=== PATIENT | male | born 1930 | race Caucasian/White ===

== ENCOUNTER 2017-02-05 09:30 | Emergency (ER) | payer OTHER ==
[~2017-02-05] VITALS: Ht 167.6 cm; Wt 81.7 kg
[~2017-02-05 09:30] MED LIST: ALPRAZOLAM 0.50.5 M1 PO; ALPRAZOLAM 0.50.5 MG PO; ASA81BEC PO; ASPIRIN EC81 M1 PO; BENACAR; BENICAR20 MG PO; CELEXA 20 MG TA20 MG PO; CLOPIDOGREL; CRESTOR5 MG PO; ED-SPAZ0.125 MG PO; FISH OIL 1,0001 EAC5 PO; FISH OIL 1,0001 EAC7 PO; GAS-X125 MG PO; HYDROCODON-ACE1 EACH PO; MECLIZINE 25 MG25 M1 PO; MULTI-VITAMIN1 EAC5 PO; NIASPAN ER 101000 M1 PO; NITROGLYCERIN0.4 MG SL; PLAVIX 75 MG TA75 M1 PO; PLAVIX 75 MG TA75 MG PO; PREDNISONE 20 M20 MG PO; PROTONIX40 M1 PO; ROBAXIN500 MG PO; SOTALOL80 MG PO; TOPROL XL25 MG PO; VERTICALM25 MG PO; [UNRECOGNIZED DRUG - CODE] PO
[2017-02-05 10:35] LABS: URINE BILIRUBIN NEGATIVE (Negative); URINE BLOOD NEGATIVE (Negative); URINE COLOR YELLOW; URINE GLUCOSE-RANDOM* NEGATIVE (Negative); URINE KETONES NEGATIVE (Negative); URINE LEUKOCYTES-REFLEX NEGATIVE (Negative); URINE PROTEIN (DIPSTICK) NEGATIVE (Negative); URINE SPECIFIC GRAVITY 1.025 (1.003-1.035); URINE UROBILINOGEN 0.2 E.U./dl (0.2-1.0)
[2017-02-05 10:38] LABS: HEMOGLOBIN 14.4 gm/dL (14.0-18.0); MCH 29.9 pg (26.0-34.0); MCHC 33.5 g/dL (28.0-37.0); MCV 89.2 fL (80.0-100.0); PLATELET COUNT 248 thou/uL (150-400); RBC 4.82 mil/uL (4.50-6.00); RDW 13.9 % (10.5-14.5)
[2017-02-05 10:41] LABS: MANUAL DIFF YES
[2017-02-05 10:45] LABS: CALCIUM 9.2 mg/dL (8.5-10.1); CREATININE 1.8 mg/dL (0.7-1.3); POTASSIUM 4.4 mmol/L (3.5-5.1)
[2017-02-05 10:50] LABS: ALBUMIN 3.7 g/dL (3.4-5.0); TOTAL BILIRUBIN 0.5 mg/dL (<0.1-1.0); TOTAL PROTEIN 7.6 g/dL (6.4-8.2)
[2017-02-05 11:08] LABS: PLATELET ESTIMATE NORMAL; TOTAL CELL COUNT 100
[2017-02-05] MEDS ORDERED: LOPRESSOR25 PO (12:10)
== END 2017-02-05 12:28 | disposition home or self-care (01) ==
LOC: ER 09:30
PROVIDERS: Physician Assistant
DX: R10.31 Right lower quadrant pain (principal); I10 Essential (primary) hypertension; E78.00 Pure hypercholesterolemia, unspecified; I25.10 Atherosclerotic heart disease of native coronary artery without angina pectoris; F41.9 Anxiety disorder, unspecified; F32.9 Major depressive disorder, single episode, unspecified; I48.91 Unspecified atrial fibrillation; F10.99 Alcohol use, unspecified with unspecified alcohol-induced disorder; Z85.46 Personal history of malignant neoplasm of prostate; Z95.5 Presence of coronary angioplasty implant and graft; Z90.49 Acquired absence of other specified parts of digestive tract; Z86.018 Personal history of other benign neoplasm; Z87.891 Personal history of nicotine dependence

== ENCOUNTER 2017-09-25 12:16 | Inpatient (IN) | payer OTHER ==
[~2017-09-25] VITALS: Ht 170.2 cm; Wt 83.1 kg
--- NOTE | ~2017-09-25 | HC ---
[facility] [place] [address] CONSULTATION Name: MARIE YIP Room #: 435-P [facility]#: [id number] Admission: 09/25/17 Attend Phys: Enzo Zaidi MD Discharge: 09/26/17 Date of : 32 Report #: [id number] THIS REPORT FOR: //name// CC: Enzo Amador DO DATE OF SERVICE: 09/25/2017 HISTORY OF PRESENT ILLNESS: The patient is an 86-year-old white male who I was asked to see in the hospital today after he complained of chest pain. The patient has an extensive past medical history. The patient apparently had a coronary artery stent placed in his LAD in 2008. He had a repeat heart catheterization in 2012 that showed no restenosis of the stent. Stress PET scan in 2014 showed no ischemia. Previous EGD showed a Schatzki's ring that was dilated. He was actually admitted here to [facility] in 2015 with chest pain. Nuclear stress test in 07/2016 showed no ischemia. Echocardiogram at that time showed normal left ventricular function. The patient continues to complain of intermittent chest pain. It is not necessarily related to exertion or meals. Typically occurs when he is lifting his arms. Last few days, he has had an intermittent, sharp pain in his chest. He feels a soreness that is there all the time. The pain is not related to activity or meals. There is no associated shortness of breath or diaphoresis. He came to the Emergency Room today and was admitted. The patient stays active walking 2 miles a day. He also continues to play golf. Denies exertional dyspnea, palpitations, syncope or peripheral edema. PAST MEDICAL HISTORY: Otherwise significant for previous cholecystectomy and cataract extraction. He has had radiation therapy for prostate cancer. He has a history of hypertension. He apparently had an episode of atrial fibrillation in the past and was on sotalol, but is no longer taking sotalol. MEDICATIONS: His current medications include Xanax, aspirin, clopidogrel, Benicar, metoprolol, niacin and Crestor. ALLERGIES: He has no known drug allergies. FAMILY HISTORY: His mother and father had a heart attack. SOCIAL HISTORY: He is . He and his live in [place], [place]. 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 Quit smoking years ago. Occasionally drinks alcohol. REVIEW OF SYSTEMS: He has had no history of stroke. He does have asthma and uses inhaler occasionally. He has had a history of peptic ulcer disease. No liver disease and no chronic skin condition. No psychiatric illness. [facility] [address] [place] [address] CONSULTATION Name: MARIE YIP Lenora Room #: 435-P [facility]#: [id number] Admission: 09/25/17 Attend Phys: Enzo Zaidi MD Discharge: 09/26/17 Date of : 32 Report #: [id number] PHYSICAL EXAMINATION: GENERAL: Elderly male lying in bed. He appeared in no distress. VITAL SIGNS: He had a blood pressure of 140/70 and pulse 60. He is afebrile. HEENT: He was anicteric. Conjunctivae pink. Mucous membranes are moist. NECK: Veins are not distended. No carotid bruits. CHEST: Revealed expiratory wheezes. CARDIOVASCULAR: Regular rate and rhythm. No significant murmur. ABDOMEN: Soft and nontender. EXTREMITIES: Had no edema. Dorsalis pedis pulse 1+ bilaterally. SKIN: Warm and dry. NEUROLOGIC: Nonfocal. LYMPH: No adenopathy. MUSCULOSKELETAL: No joint effusion. RADIOLOGICAL DATA: His ECG showed a sinus rhythm with sinus bradycardia, left axis, no ST or T-wave change. His workup in the Emergency Room today, he had a portable chest x-ray that showed normal heart size and clear lung xiao. LABORATORY DATA: Today sodium 139, BUN is 20, creatinine 1.8 and glucose 91. His troponin was 0.04. His cholesterol was 165, triglycerides 342, HDL 28 and LDL 69. White blood cell count 11.0 and hemoglobin 14.2. IMPRESSION AND RECOMMENDATIONS: 1. Chest pain. Atypical for angina. No evidence of acute myocardial infarction. Because of his history of coronary artery disease, recommend screening. Since the patient is on a beta mario and has an abnormal ECG, I would recommend pharmacologic nuclear stress testing. 2. Hypertension. The patient has been on a beta mario and ARB. 3. Hyperlipidemia. The patient is on a statin drug. 4. Asthma. 5. Chronic kidney disease. 6. History of prostate cancer. <ELECTRONICALLY SIGNED> By: Pool Marks MD, FACC 09/27/17 0829 1710 2329 Pool Marks MD, FACC /nt
--- NOTE | ~2017-09-25 | EKG ---
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 : 1930 Requested By: Pool Marks Order Number: [id number] MD: Beka Husain Measurements Intervals [place] Rate: 56 P: 51 NV: 225 QRS: -23 QRSD: 90 T: 71 QT: 443 QTc: 428 Interpretive Statements Sinus bradycardia Prolonged NV interval Borderline left axis deviation Compared to ECG 09/25/2017 12:30:14 No significant change was found Electronically Signed On 09-26-2017 8:49:20 NOZZLE AND SLEEVE WORKER by Beka Husain [email or web address] <ELECTRONICALLY SIGNED> By: Beka Husain MD, [facility] 09/26/17 0849 8 8 Beka Husain MD, [facility] /EPI
--- NOTE | ~2017-09-25 | EKG ---
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 : 1930 Requested By: Damion Walker Order Number: [id number] MD: Beka Husain Measurements Intervals [place] Rate: 53 P: -59 VA: 203 QRS: -25 QRSD: 92 T: 65 QT: 437 QTc: 411 Interpretive Statements Sinus bradycardia with first-degree AV block Borderline left axis deviation Compared to ECG 10/09/2016 08:39:46 No significant change was found Electronically Signed On 09-25-2017 16:31:56 LINOTYPE MACHINIST APPRENTICE by Beka Husain [email or web address] <ELECTRONICALLY SIGNED> By: Beka Husain MD, [facility] 09/25/17 1631 1230 1230 Beka Hsuain MD, [facility] /EPI
[~2017-09-25 12:16] MED LIST changes: +LOPRESSOR25 PO
[2017-09-25 12:18] VITALS: BP 140/66
[2017-09-25] MEDS ORDERED: FISH OIL 1,001000 M2 PO (13:18)
[2017-09-25 13:37] LABS: HEMATOCRIT 42.8 % (42.0-52.0); HEMOGLOBIN 14.2 gm/dL (14.0-18.0); MCH 29.5 pg (26.0-34.0); MCHC 33.3 g/dL (28.0-37.0); MCV 88.7 fL (80.0-100.0); RBC 4.83 mil/uL (4.50-6.00); RDW 13.4 % (10.5-14.5)
[2017-09-25 13:41] LABS: ANION GAP 5 mmol/L (7-16); BUN 20 mg/dL (7-18); CALCIUM 9.1 mg/dL (8.5-10.1); CHLORIDE 104 mmol/L (98-107); CO2 30 mmol/L (21-32); CREATININE 1.8 mg/dL (0.7-1.3); GLUCOSE 91 mg/dL (74-106); POTASSIUM 4.1 mmol/L (3.5-5.1); SODIUM 139 mmol/L (136-145)
[2017-09-25 13:51] LABS: TROPONIN-I < 0.04 ng/mL (<0.06)
[2017-09-25 15:11] VITALS: BP 113/66
[2017-09-25 15:37] VITALS: BP 137/67
[2017-09-25 15:58] LABS: CHOLESTEROL 165 mg/dL (<200); HDL CHOLESTEROL 28 mg/dL (>40); LDL CHOLESTEROL 69 mg/dL (<100); TC:HDL 5.9 Ratio (Not establshd); TRIGLYCERIDE 342 mg/dL (<150); VLDL 68 mg/dL (<40)
[2017-09-25 16:00] VITALS: BP 140/68
[2017-09-25 16:24] LABS: TSH 3.837 uIU/mL (0.358-3.740)
[2017-09-25 21:17] VITALS: BP 143/69
[2017-09-26 04:21] VITALS: BP 146/60
[2017-09-26 07:35] VITALS: BP 147/72
[2017-09-26 10:15] LABS: ABSOLUTE NEUTROPHILS 6.1 thou/uL (1.4-8.2); BASOPHILS 0.9 % (0.0-2.0); EOSINOPHILS 4.6 % (0.0-3.0); HEMATOCRIT 42.3 % (42.0-52.0); HEMOGLOBIN 14.2 gm/dL (14.0-18.0); LYMPHOCYTES 20.8 % (24.0-44.0); MCH 29.6 pg (26.0-34.0); MCHC 33.6 g/dL (28.0-37.0); MCV 87.9 fL (80.0-100.0); MONOCYTES 10.2 % (1.0-8.0); PLATELET COUNT 234 thou/uL (150-400); POLYS 63.5 % (36.0-66.0); RBC 4.82 mil/uL (4.50-6.00); RDW 13.9 % (10.5-14.5); WBC 9.6 thou/uL (4.0-11.0)
[2017-09-26 10:22] LABS: CALCIUM 9.1 mg/dL (8.5-10.1); CREATININE 1.7 mg/dL (0.7-1.3); POTASSIUM 4.3 mmol/L (3.5-5.1)
[2017-09-26 15:34] VITALS: BP 138/69
[2017-09-26 18:09] VITALS: BP 138/69
== END 2017-09-26 18:32 | disposition home or self-care (01) | DRG 303 ==
LOC: ER 12:16 → EROBS 14:25 → 4S 14:25
PROVIDERS: Emergency Medicine; Hospitalist; Nurse Practitioner
DX: I25.119 Atherosclerotic heart disease of native coronary artery with unspecified angina pectoris (principal); E78.00 Pure hypercholesterolemia, unspecified; F41.9 Anxiety disorder, unspecified; F32.9 Major depressive disorder, single episode, unspecified; I48.91 Unspecified atrial fibrillation; N18.3 Chronic kidney disease, stage 3 (moderate); I12.9 Hypertensive chronic kidney disease with stage 1 through stage 4 chronic kidney disease, or unspecified chronic kidney disease; J45.909 Unspecified asthma, uncomplicated; E78.5 Hyperlipidemia, unspecified; H91.90 Unspecified hearing loss, unspecified ear; Z85.46 Personal history of malignant neoplasm of prostate; Z98.42 Cataract extraction status, left eye; Z98.41 Cataract extraction status, right eye; Z95.5 Presence of coronary angioplasty implant and graft; Z90.49 Acquired absence of other specified parts of digestive tract; Z79.82 Long term (current) use of aspirin; Z79.899 Other long term (current) drug therapy; Z87.891 Personal history of nicotine dependence; Z82.49 Family history of ischemic heart disease and other diseases of the circulatory system
CPT/HCPCS: 10100

== ENCOUNTER 2018-04-29 10:12 | Inpatient (IN) | payer OTHER ==
[~2018-04-29] VITALS: Ht 170.2 cm; Wt 79.8 kg
--- NOTE | ~2018-04-29 | EKG ---
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 : 1930 Requested By: yTra Bearden Order Number: [id number] MD: Adam Almanza Measurements Intervals [place] Rate: 59 P: -14 ND: 195 QRS: -28 QRSD: 87 T: 83 QT: 418 QTc: 414 Interpretive Statements Sinus rhythm Borderline left axis deviation Nonspecific T abnormalities, lateral leads Compared to ECG 09/26/2017 06:39:09 T-wave abnormality now present Sinus bradycardia no longer present First degree AV block no longer present Electronically Signed On 05-03-2018 14:36:21 CDT by Adam Almanza [email or web address] <ELECTRONICALLY SIGNED> By: Adam Almanza MD 05/03/18 1436 1013 1013 Adam Almanza MD /EPI
--- NOTE | ~2018-04-29 | 2DMMODE ---
[facility] [place] [address] 2 D/M-MODE ECHOCARDIOGRAM Name: MARIE YIP Room #: 349-I [facility] IN [facility]#: [id number] Admission: 04/29/18 Attend Phys: Reggie Anne MD Discharge: Date of : 32 Date of Service: 04/30/18 0838 Report #: [id number] THIS REPORT FOR: //name// APPROVED REPORT Study performed: 04/29/2018 13:03:44 EXAM: Comprehensive 2D, Doppler, and color-flow Echocardiogram Patient Location: ER Status: routine BSA: 1.94 HR: 59 bpm BP: 149/65 mmHg Other Information Study Quality: Good Indications Chest Pain Hx: CAD, stents, Afib, HTN, HLP 2D Dimensions RVDd: 29.65 mm IVSd: 9.70 (7-11mm) LVOT Diam: 19.62 (18-24mm) LVDd: 45.15 mm PWd: 9.69 (7-11mm) Ascending Ao: 30.50 (22-36mm) LVDs: 30.12 (25-40mm) Aortic Root: 31.07 mm Volumes Left Atrial Volume (Systole) Single Plane 4CH: 35.57 mL Single Plane 2CH: 50.10 mL LA ESV Index: 24.00 mL/m2 Aortic Valve AoV Peak Michael.: 1.25 m/s AO Peak Gr.: 6.24 mmHg LVOT Max P.09 mmHg LVOT Max V: 1.13 m/s TERRY Vmax: 2.73 cm2 Mitral Valve E/A Ratio: 0.8 MV Decel. Time: 263.36 ms MV E Max Michael.: 0.53 m/s [facility] [address] [place] [address] 2 D/M-MODE ECHOCARDIOGRAM Name: PHIMARIE Lenora Room #: 349-I [facility] IN [facility]#: [id number] Admission: 04/29/18 Attend Phys: Reggie Anne MD Discharge: Date of : 32 Date of Service: 04/30/18 0838 Report #: [id number] MV A Michael.: 0.66 m/s MV PHT: 76.37 ms IVRT: 87.66 ms Pulmonary Valve PV Peak Michael.: 0.77 m/s PV Peak Gr.: 2.40 mmHg Pulmonary Vein P Vein S: 0.74 m/s P Vein A: 0.33 m/s P Vein D: 0.47 m/s P Vein A Dur.: 133.8 msec P Vein S/D Ratio: 1.57 Tricuspid Valve RAP Estimate: 5.00 mmHg Left Ventricle The left ventricle is normal size. There is normal LV segmental wall motion. There is normal left ventricular wall thickness. Left ventricular systolic function is normal. LVEF is 55%. Mild diastolic dysfunction is present (impaired relaxation pattern). Right Ventricle The right ventricle is normal size. The right ventricular systolic function is normal. Atria The left atrium size is normal. The right atrium size is normal. Aortic Valve The Aortic valve is mildly sclerotic. Trace to mild aortic regurgitation. There is no aortic valvular stenosis. Mitral Valve The mitral valve is normal in structure. Mild mitral regurgitation. No evidence of mitral valve stenosis. Tricuspid Valve The tricuspid valve is normal in structure. There is no tricuspid valve regurgitation noted. Unable to assess PA pressure. Pulmonic Valve Pulmonic valve is not well visualized. Mild pulmonic regurgitation. [employer] [facility] [address] [place] [place] [address] 2 D/M-MODE ECHOCARDIOGRAM Name: MARIE YIP Room #: 349-I ADM IN ..#: [id number] Admission: 04/29/18 Attend Phys: Reggie Anne MD Discharge: Date of : 32 Date of Service: 04/30/1838 Report #: [id number] The aortic root is normal in size. Ascending aorta is not well visualized. IVC is not well visualized. Pericardium There is no pericardial effusion. <Conclusion> LVEF is 55%. The Aortic valve is mildly sclerotic. Mild mitral regurgitation. <ELECTRONICALLY SIGNED> By: Pool Marks MD, [facility] 09/837 7 7 Pool Marks MD, FACC /INF
--- NOTE | ~2018-04-29 | HC ---
[facility] [place] [address] CONSULTATION Name: PHIMARIE Lenora Room #: 349-I ADM IN [facility].#: [id number] Admission: 04/29/18 Attend Phys: Reggie Anne MD Discharge: Date of : 32 Report #: [id number] THIS REPORT FOR: //name// CC: Reggie Amador DO DATE OF SERVICE: 04/30/2018 HISTORY OF PRESENT ILLNESS: The patient is an 87-year-old single white male who I saw in the hospital after he complained of chest pain. The patient had a stent placed in his LAD in 2008. Repeat heart catheterization in 2012 showed no restenosis. His last stress test in 2015 showed no evidence of ischemia with an ejection fraction of 73%. The patient stays fairly active despite his advanced age. In the past couple of days, he has had intermittent chest pain. It is not related to exertion or meals. It seems to be tender to touch. He denied any trauma to his chest. There is no radiation of the pain, associated shortness of breath, diaphoresis or nausea. The pain would come and go. He has had no fever, cough or bleeding. He finally came to the Emergency Room last night and was admitted. He denies exertional dyspnea. He notes occasional fluttering in his chest. No syncope. PAST MEDICAL HISTORY: Otherwise significant for cholecystectomy, cataract extraction and hypertension. He had a previous history of atrial fibrillation and had been on sotalol in the past. CURRENT MEDICATIONS: Consists of aspirin, Celexa, Plavix, olmesartan, Crestor and metoprolol. ALLERGIES: He has no known drug allergies. FAMILY HISTORY: His father had a heart disease. SOCIAL HISTORY: He is single. His a few months ago of heart disease. He lives in [place], [place]. 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 He stays active including golfing. He quit smoking years ago. No alcohol abuse. REVIEW OF SYSTEMS: He has had no history of stroke or asthma. He had a peptic ulcer years ago. No history of kidney disease. He has had a history of prostate cancer. No psychiatric illness. No chronic skin condition. PHYSICAL EXAMINATION: GENERAL: Reveals an elderly male, lying in bed. He appeared in no distress. VITAL SIGNS: He had a blood pressure of 150/80, pulse 60 and he is afebrile. HEENT: He was anicteric. Conjunctivae pink. Mucous membranes are moist. [facility] [address] [place] [address] CONSULTATION Name: MARIE YIP Room #: 349-I [facility]#: [id number] Admission: 04/29/18 Attend Phys: Reggie Anne MD Discharge: Date of : 32 Report #: [id number] NECK: Veins nondistended. No carotid bruits. CHEST: Clear to auscultation. CARDIOVASCULAR: Regular rate and rhythm. No significant murmur. ABDOMEN: Soft. EXTREMITIES: He had no edema. Dorsalis pedis pulse 2+ bilaterally. SKIN: Warm and dry. NEUROLOGIC: Nonfocal. LABORATORY DATA: His ECG on admission yesterday showed sinus bradycardia, no ST or T-wave change. His workup so far, he had a portable chest x-ray that showed atelectasis, otherwise unremarkable. He actually had a nuclear stress test in September that showed small reversible basal lateral defect. This is felt to represent a small area of ischemia. There was normal left ventricular function. His lab work, sodium 140 and creatinine was 1.9, which is unchanged from 3 years ago. His liver function studies were normal. His white blood cell count 12.4 and hemoglobin 14.7. IMPRESSION AND RECOMMENDATIONS: 1. Chest pain. Somewhat atypical for angina. No evidence of acute myocardial infarction. I suspect his chest pain is noncardiac. Nuclear stress test 6 months ago showed only a small area of ischemia. At this time, I will continue medical therapy. I will continue Plavix and beta mario. I would make sure the patient has nitroglycerin to take as needed for chest pain. At this time, I think it is reasonable to discharge the patient. 2. Hypertension. The patient is on a beta mario and ARB. 3. History of atrial fibrillation. No clinical recurrences. The patient is no longer on sotalol. 4. History of prostate cancer. 5. Hyperlipidemia. The patient is on a statin drug. <ELECTRONICALLY SIGNED> By: Pool Marks MD, [facility] 04/30/18 1637 0807 0837 Pool Marks MD, FACC /nt
--- NOTE | ~2018-04-29 | EKG ---
[address] [address] ELECTROCARDIOGRAM REPORT Name: MARIE YIP Room #: 349-I DIS IN M.R.#: [id number] Admission: 04/29/18 Attend Phys: Reggie Anne MD Discharge: 04/30/18 Date of : 32 Report #: [id number] THIS REPORT FOR: //name// [facility] Test Date: 2018-04-30 Test Time: 14:46:46 Pat Name: MARIE YIP Department: Room: 349 I Gender: M Accountant Assistant: Aleks MUNGUIA : 1930 Requested By: Reggie Anne Order Number: [id number] MD: Adam Almanza Measurements Intervals [place] Rate: 50 P: 50 WI: 225 QRS: -16 QRSD: 92 T: 106 QT: 461 QTc: 421 Interpretive Statements Sinus rhythm Prolonged [place] interval Borderline left axis deviation Nonspecific T abnormalities, lateral leads Compared to ECG 09/26/2017 06:39:09 T-wave abnormality now present Sinus bradycardia no longer present Electronically Signed On 05-03-2018 14:58:14 CDT by Adam Almanza [email or web address] <ELECTRONICALLY SIGNED> By: Adam Almanza MD 05/03/18 1458 1446 1446 Adam Almanza MD /EPI
[~2018-04-29 10:12] MED LIST changes: +FISH OIL 1,001000 M2 PO
[2018-04-29 10:14] VITALS: BP 151/70
[2018-04-29 10:48] LABS: ABSOLUTE NEUTROPHILS 7.5 thou/uL (1.4-8.2); BASOPHILS 0.7 % (0.0-2.0); EOSINOPHILS 1.9 % (0.0-3.0); HEMATOCRIT 44.4 % (42.0-52.0); HEMOGLOBIN 14.7 gm/dL (14.0-18.0); LYMPHOCYTES 27.7 % (24.0-44.0); MCH 29.3 pg (26.0-34.0); MCV 88.8 fL (80.0-100.0); MONOCYTES 9.4 % (1.0-8.0); PLATELET COUNT 288 thou/uL (150-400); POLYS 60.3 % (36.0-66.0); RDW 14.5 % (10.5-14.5); WBC 12.4 thou/uL (4.0-11.0)
[2018-04-29 11:10] LABS: ANION GAP 7 mmol/L (7-16); BUN 29 mg/dL (7-18); CALCIUM 9.2 mg/dL (8.5-10.1); CHLORIDE 105 mmol/L (98-107); CO2 28 mmol/L (21-32); CREATININE 1.9 mg/dL (0.7-1.3); GLUCOSE 97 mg/dL (74-106); POTASSIUM 4.2 mmol/L (3.5-5.1); SODIUM 140 mmol/L (136-145)
[2018-04-29 11:18] LABS: ALBUMIN 3.8 g/dL (3.4-5.0); LIPASE 227 U/L (73-393); MAGNESIUM 2.1 mg/dL (1.8-2.4); SGOT 21 U/L (15-37); SGPT 34 U/L (30-65); TOTAL BILIRUBIN 0.4 mg/dL (<0.1-1.0); TOTAL PROTEIN 7.2 g/dL (6.4-8.2); TROPONIN-I <0.06 ng/mL (<0.06)
[2018-04-29 12:34] LABS: URINE BILIRUBIN NEGATIVE (Negative); URINE BLOOD NEGATIVE (Negative); URINE CLARITY CLEAR; URINE COLOR YELLOW; URINE GLUCOSE-RANDOM* NEGATIVE (Negative); URINE KETONES NEGATIVE (Negative); URINE LEUKOCYTES-REFLEX NEGATIVE (Negative); URINE NITRITE-REFLEX NEGATIVE (Negative); URINE PROTEIN (DIPSTICK) NEGATIVE (Negative); URINE SPECIFIC GRAVITY 1.025 (1.005-1.035); URINE UROBILINOGEN 0.2 E.U./dl (0.2-1.0)
[2018-04-29 14:20] VITALS: BP 149/65
[2018-04-29 15:00] VITALS: BP 173/74
[2018-04-29 15:03] VITALS: BP 181/80
[2018-04-29 20:20] VITALS: BP 167/78
[2018-04-29 23:30] VITALS: BP 173/84
[2018-04-30] VITALS (7 sets, daily range): BP systolic 76–152; BP diastolic 43–83
[2018-04-30] MEDS ORDERED: PROTONIX40 M1 PO (11:09)
[2018-04-30 13:49] LABS: ABSOLUTE NEUTROPHILS 5.2 thou/uL (1.4-8.2); BASOPHILS 0.8 % (0.0-2.0); EOSINOPHILS 2.9 % (0.0-3.0); HEMATOCRIT 41.9 % (42.0-52.0); HEMOGLOBIN 14.4 gm/dL (14.0-18.0); LYMPHOCYTES 29.1 % (24.0-44.0); MCH 30.4 pg (26.0-34.0); MCHC 34.4 g/dL (28.0-37.0); MCV 88.3 fL (80.0-100.0); MONOCYTES 11.2 % (1.0-8.0); PLATELET COUNT 272 thou/uL (150-400); RBC 4.74 mil/uL (4.50-6.00); RDW 14.2 % (10.5-14.5); WBC 9.3 thou/uL (4.0-11.0)
[2018-04-30 14:00] LABS: ALBUMIN 3.4 g/dL (3.4-5.0); CALCIUM 8.9 mg/dL (8.5-10.1); CREATININE 2.3 mg/dL (0.7-1.3); POTASSIUM 4.1 mmol/L (3.5-5.1); TOTAL BILIRUBIN 0.6 mg/dL (<0.1-1.0); TOTAL PROTEIN 6.9 g/dL (6.4-8.2)
== END 2018-04-30 16:55 | disposition home or self-care (01) | DRG 391 ==
LOC: ER 10:12 → EROBS 12:36 → 3W 12:36 → ENTRNSPT 04-30 12:47 → EDTRNSPTSTS 04-30 12:50 → 3W 04-30 16:55
PROVIDERS: Hospitalist; Nurse Practitioner Family
DX: K21.9 Gastro-esophageal reflux disease without esophagitis (principal); N17.0 Acute kidney failure with tubular necrosis; I25.119 Atherosclerotic heart disease of native coronary artery with unspecified angina pectoris; E78.00 Pure hypercholesterolemia, unspecified; K57.90 Diverticulosis of intestine, part unspecified, without perforation or abscess without bleeding; I48.91 Unspecified atrial fibrillation; N18.9 Chronic kidney disease, unspecified; E78.5 Hyperlipidemia, unspecified; G89.29 Other chronic pain; I12.9 Hypertensive chronic kidney disease with stage 1 through stage 4 chronic kidney disease, or unspecified chronic kidney disease; I25.10 Atherosclerotic heart disease of native coronary artery without angina pectoris; F41.9 Anxiety disorder, unspecified; F32.9 Major depressive disorder, single episode, unspecified; Z85.46 Personal history of malignant neoplasm of prostate; Z92.3 Personal history of irradiation; Z98.42 Cataract extraction status, left eye; Z98.41 Cataract extraction status, right eye; Z90.49 Acquired absence of other specified parts of digestive tract; Z95.5 Presence of coronary angioplasty implant and graft; Z87.891 Personal history of nicotine dependence; Z82.49 Family history of ischemic heart disease and other diseases of the circulatory system; Z79.82 Long term (current) use of aspirin; Z79.899 Other long term (current) drug therapy; Z60.2 Problems related to living alone
CPT/HCPCS: 10879

== ENCOUNTER 2018-05-29 22:36 | Inpatient (IN) | payer OTHER ==
[~2018-05-29] VITALS: Ht 170.2 cm; Wt 78.5 kg
--- NOTE | ~2018-05-29 | EKG ---
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 Lineman: NATHEN : 1930 Requested By: Mercedes Hannah Order Number: [id number] MD: Beka Husain Measurements Intervals [place] Rate: 65 P: 50 MT: 215 QRS: -34 QRSD: 92 T: 86 QT: 409 QTc: 426 Interpretive Statements Sinus rhythm Borderline prolonged MT interval Left axis deviation Abnormal R-wave progression, early transition Compared to ECG 04/30/2018 14:46:46 T-wave abnormality no longer present Electronically Signed On 05-30-2018 8:21:04 CDT by Beka Husain [email or web address] <ELECTRONICALLY SIGNED> By: Beka Husain MD, [facility] 05/30/18 0821 2249 2249 Beka Husain MD, [facility] /EPI
--- NOTE | ~2018-05-29 | CATHLAB ---
"[facility] [address] | [employer] [place] [address] INVASIVE PROCEDURE REPORT Name: PHIMARIE Lenora Room #: 349-I ADM IN [facility].#: [id number] Admission: 05/29/18 Attend Phys: Enzo Zaidi MD Discharge: Date of : 32 Date of Service: 05/31/18 0834 Report #: [id number] THIS REPORT FOR: //name// APPROVED REPORT Study performed: 05/30/2018 15:59:31 Patient Details Patient Status: In-Patient Room #: The patient is a 87 year-old male Event Personnel Pool Marks Features Editor, Harrison Turk RN RN, Maria Eugenia Treviño RTR, Subha Villalpando Christine RTR Monitor, Pedro Montes De Oca RN Procedures Performed Art Access - R femoral artery* Left Heart Cath w/or w/o Coronaries [id number] [facility] 16857 Initial Mod Sed Same Phys/QHP Gr5y 669516 Hemostasis w/ Mynx 03342 Mod Sed Same Phys/QHP Ea [id number] Indication Chest pain Risk Factors Hypercholesterolemia, Coronary Artery Disease Previous Procedures/Diagnoses Previous PCI Procedure Narrative The patient was brought electively to the Cardiac Catheterization Laboratory and was prepped and draped in a sterile manner. The Right Groin^ was infiltrated with 1% Lidocaine subcutaneous anesthesia. A PINNACLE 6FR Sheath #[id number] sheath was inserted into the RFA 6FR^. Coronary angiography was performed using coronary diagnostic catheters. The right coronary system was accessed and visualized with a JR4 catheter. The left coronary system was accessed and visualized with a JL4 catheter. The left ventricle was accessed and visualized with a JR4 catheter. Left ventricular/Aortic Valve gradient assessed via catheter pullback. Closure device was deployed with a 6 Fr MYNXGRIP 6/7F #[id number]. The patient tolerated the procedure well and there were no complications associated with the procedure. There was no hematoma. [facility] [address] [place] [address] INVASIVE PROCEDURE REPORT Name: PHIMARIE Lenora Room #: 349-I [facility] IN [facility]#: [id number] Admission: 05/29/18 Attend Phys: Enzo Zaidi MD Discharge: Date of : 32 Date of Service: 05/31/18 0834 Report #: [id number] Intraoperative Conscious Sedation Sedation start time: 16:57 Case end Time: 17:35 Versed 1 mg Fluoro Time: 1.30 minutes Dose: DAP 2878.00 cGycm2 315 mGy Contrast Type and Amount: Visipaque 100 ml Coronary Angiography The patient's coronary anatomy is right dominant. Diagnostic Cath Left Main 0% stenosis LAD stent in mid lad with 0% stenosis. 60% stenosis noted beyond second diagonal branch Circumflex 60% mid stenosis and 60% stenosis beyond 3rd marginal branch Right Coronary 60% mid and 30% distal stenosis Left Ventriculography Left Ventriculography was not performed. Hemodynamics The aortic pressure is 189/81 mmHg with a mean of 120 mmHg. The left ventricular pressure is 184/30 mmHg with a mean of mmHg. The left ventricular end diastolic pressure is 32 mmHg. There was no gradient across the aortic valve upon pullback. Pullback from the left ventricle to the aorta revealed no gradient across the aortic valve. Conclusion 1. no significant restenosis of stent in mid lad 2. diffuse cad with 60% stenosis noted of distal lad, 60% stenosis of mid circumflex, and 60% stenosis of mid rca Recommendations Aggressive Medical Therapy <ELECTRONICALLY SIGNED> By: Pool Marks MD, FACC 05/31/18833 3 3 Pool Marks MD, FACC /INF"
--- NOTE | ~2018-05-29 | HC ---
[facility] [place] [address] CONSULTATION Name: MARIE YIP Lenora Room #: 349-I ADM IN ..#: [id number] Admission: 05/29/18 Attend Phys: Enzo Zaidi MD Discharge: Date of : 32 Report #: [id number] THIS REPORT FOR: //name// CC: Enzo Amador DO DATE OF SERVICE: 05/30/2018 TYPE OF REPORT: Cardiology consultation. HISTORY OF PRESENT ILLNESS: The patient is an 87-year-old single white male who I was asked to see in the hospital today after he complained of chest pain. The patient had a stent placed in his LAD in 2008. Repeat heart catheterization in 2012 showed no significant restenosis. The patient stays fairly active despite his age. He continues to golf and go for walks. Nuclear stress test in September this year showed a small reversible lateral defect at the base. This is felt to represent a small area of ischemia. Medical therapy was recommended. The patient states that recently he has been having recurrent chest pain. He describes a sharp pain in his chest. It is not necessarily related to exertion or meals. It can be relieved with nitroglycerin. It is not related to food. He has had no fever, bleeding or cough. He has had no blood in the stool. Because of the chest pain, family brought him to the Emergency Room last night he was admitted for further evaluation and treatment. He does note some exertional dyspnea, but no palpitations or syncope. PAST MEDICAL HISTORY: Significant for cholecystectomy, cataract extraction and hypertension. He has a previous history of atrial fibrillation and was on sotalol in the past. CURRENT MEDICATIONS: Consists of aspirin, Plavix, olmesartan, Crestor, metoprolol and Celexa. ALLERGIES: He has no known drug allergies. FAMILY HISTORY: His father had heart disease. SOCIAL HISTORY: Single, lives in [place], [place]. He quit smoking years ago. No alcohol abuse. REVIEW OF SYSTEMS: He has had no history of stroke or asthma. He has had a peptic ulcer in the past. No history of kidney disease. He does have a history of prostate cancer. No psychiatric illness. No chronic skin condition. PHYSICAL EXAMINATION: GENERAL: Revealed an elderly male who appeared in no acute distress. [facility] [address] [place] [address] CONSULTATION Name: MARIE YIP Room #: 349-I [facility] IN [facility]#: [id number] Admission: 05/29/18 Attend Phys: Enzo Zaidi MD Discharge: Date of : 32 Report #: [id number] VITAL SIGNS: He had a blood pressure of 140/70 and pulse 60. He is afebrile. HEENT: He is anicteric. Conjunctivae pink. Mucous members moist. CHEST: Clear to auscultation. CARDIOVASCULAR: Regular rate and rhythm. No significant murmur. ABDOMEN: Soft. EXTREMITIES: No edema. SKIN: Warm and dry. NEUROLOGICAL: Nonfocal. RADIOLOGICAL DATA: ECG, sinus rhythm, nonspecific T-wave changes. His workup, he actually had an echocardiogram just done last month that showed ejection fraction 55%, aortic sclerosis. Workup in the Emergency Room last night, he had a chest x-ray that showed normal heart size and clear lung xiao. LABORATORY DATA: Sodium 140, potassium 3.9, his BUN was 24 and creatinine 1.9. It has been as high as 2.3 in the past. His liver function studies were normal. Troponin 0.06. Cholesterol 201, triglyceride 133, HDL 34 and LDL 141. White blood cell count 10.3 and hemoglobin 15.1. IMPRESSION AND RECOMMENDATIONS: 1. Unstable angina. The patient is on aspirin and Plavix. I would recommend repeat cardiac catheterization. 2. History of atrial fibrillation. No clinical recurrences on a beta mario. 3. Hypertension. The patient is on a beta mario and adrenergic receptor binder. 4. Hyperlipidemia. The patient is on a statin drug. 5. Chronic kidney disease. 6. History of prostate cancer. By: [id number] Pool Marks MD, FACC /nt
[2018-05-29 22:47] VITALS: BP 179/77
[2018-05-29 23:02] LABS: ABSOLUTE NEUTROPHILS 5.8 thou/uL (1.4-8.2); BASOPHILS 0.6 % (0.0-2.0); EOSINOPHILS 1.7 % (0.0-3.0); HEMATOCRIT 44.3 % (42.0-52.0); HEMOGLOBIN 15.1 gm/dL (14.0-18.0); MCH 30.1 pg (26.0-34.0); MCV 88.5 fL (80.0-100.0); MONOCYTES 9.5 % (1.0-8.0); PLATELET COUNT 230 thou/uL (150-400); POLYS 56.2 % (36.0-66.0); RBC 5.01 mil/uL (4.50-6.00); RDW 14.2 % (10.5-14.5); WBC 10.3 thou/uL (4.0-11.0)
[2018-05-29 23:14] LABS: ANION GAP 7 mmol/L (7-16); BUN 24 mg/dL (7-18); CALCIUM 9.6 mg/dL (8.5-10.1); CHLORIDE 103 mmol/L (98-107); CO2 30 mmol/L (21-32); CREATININE 1.9 mg/dL (0.7-1.3); GLUCOSE 110 mg/dL (74-106); POTASSIUM 3.9 mmol/L (3.5-5.1); SODIUM 140 mmol/L (136-145)
[2018-05-29 23:19] LABS: ALBUMIN 3.8 g/dL (3.4-5.0); SGOT 19 U/L (15-37); SGPT 33 U/L (30-65); TOTAL BILIRUBIN 0.3 mg/dL (<0.1-1.0); TOTAL PROTEIN 7.7 g/dL (6.4-8.2); TROPONIN-I <0.06 ng/mL (<0.06)
[2018-05-30] VITALS (9 sets, daily range): BP systolic 119–172; BP diastolic 55–85
[2018-05-30 06:26] LABS: CHOLESTEROL 201 mg/dL (<200); HDL CHOLESTEROL 34 mg/dL (>40); LDL CHOLESTEROL 141 mg/dL (<100); TC:HDL 5.9 Ratio (Not establshd); TRIGLYCERIDE 133 mg/dL (<150); VLDL 27 mg/dL (<40)
[2018-05-31 05:14] VITALS: BP 146/70
[2018-05-31 06:42] LABS: TSH 4.361 uIU/mL (0.358-3.740)
[2018-05-31 07:27] VITALS: BP 170/72
[2018-05-31 11:50] VITALS: BP 143/70
[2018-05-31 15:25] VITALS: BP 131/77
[2018-05-31] MEDS ORDERED: NITROGLYCERIN0.4 MG SUBLING (16:32)
[2018-05-31 16:54] VITALS: BP 131/77
[2018-05-31 17:52] VITALS: BP 131/77
== END 2018-05-31 17:30 | disposition home or self-care (01) | DRG 287 ==
LOC: ER 22:36 → EROBS 23:39 → 3W 23:39
PROVIDERS: Nurse Practitioner Acute Care; Nurse Practitioner Family; Student in an Organized Health Care Education/Training Program
PROC: 4A023N7 Measurement of Cardiac Sampling and Pressure, Left Heart, Percutaneous Approach (ICD-10-PCS; principal; 2018-05-30)
PROC: B211YZZ Fluoroscopy of Multiple Coronary Arteries using Other Contrast (ICD-10-PCS; principal; 2018-05-30)
DX: I25.110 Atherosclerotic heart disease of native coronary artery with unstable angina pectoris (principal); E78.00 Pure hypercholesterolemia, unspecified; M19.012 Primary osteoarthritis, left shoulder; I25.10 Atherosclerotic heart disease of native coronary artery without angina pectoris; F41.9 Anxiety disorder, unspecified; K57.90 Diverticulosis of intestine, part unspecified, without perforation or abscess without bleeding; I48.91 Unspecified atrial fibrillation; E78.5 Hyperlipidemia, unspecified; N18.3 Chronic kidney disease, stage 3 (moderate); K21.9 Gastro-esophageal reflux disease without esophagitis; I12.9 Hypertensive chronic kidney disease with stage 1 through stage 4 chronic kidney disease, or unspecified chronic kidney disease; Z60.2 Problems related to living alone; F32.9 Major depressive disorder, single episode, unspecified; Z85.46 Personal history of malignant neoplasm of prostate; Z98.42 Cataract extraction status, left eye; Z98.41 Cataract extraction status, right eye; Z95.5 Presence of coronary angioplasty implant and graft; Z90.49 Acquired absence of other specified parts of digestive tract; Z87.891 Personal history of nicotine dependence; Z82.49 Family history of ischemic heart disease and other diseases of the circulatory system; Z92.3 Personal history of irradiation; Z79.82 Long term (current) use of aspirin; Z79.899 Other long term (current) drug therapy; Z23 Encounter for immunization
CPT/HCPCS: 10879

== ENCOUNTER 2018-09-21 13:07 | Inpatient (IN) | payer OTHER ==
[~2018-09-21] VITALS: Ht 167.6 cm; Wt 81.6 kg
--- NOTE | ~2018-09-21 | HC ---
[facility] [place] [address] CONSULTATION Name: MARIE YIP Room #: 216-P [facility] M.R.#: [id number] Admission: 09/21/18 Attend Phys: Edgardo Salinas MD Discharge: Date of : 32 Report #: [id number] THIS REPORT FOR: //name// CC: Edgardo Amador TYPE OF REPORT: Inpatient consultation. CHIEF COMPLAINT: Chest pain. PRIMARY CARE PHYSICIAN: Andrea Amador DO. HISTORY OF PRESENT ILLNESS: The patient is an 87-year-old man who presented to the Emergency Department at [facility] with chest discomfort. It was left-sided and it was off and on, lasting 5 to 30 to 40 minutes long. It was pinpoint underneath his left nipple. It was not associated with shortness of breath, palpitations, heart racing or skipping. His presenting ECG demonstrated a sinus rhythm with nonspecific T-wave abnormalities in the lateral precordial leads. His cardiac troponin levels x 3 sets are normal. He did take a nitroglycerin and it partially relieved the symptoms. Since his presentation in the hospital, he has had a couple more episodes. He is not having orthopnea or PND. He has stable Telemetry. PAST MEDICAL HISTORY: He is followed by Dr. Marks for coronary artery disease. His last MPI on record was in 2014, a PET stress test was negative for ischemia and showed grossly normal LV function. He admits he has not seen Dr. Marks in some time. He sees his primary care doctor more regularly. His cardiac catheterization in 2018 showed a mid LAD stent with a 60% stenosis of the distal LAD and a 60% stenosis of the mid circumflex and 60% stenosis of mid RCA and medical therapy was recommended at that time. HOME MEDICATIONS: His medical therapies include: Aspirin, hydrocodone, Plavix 75 mg daily, rosuvastatin 10 mg daily, Toprol 25 mg daily and niacin 1000 mg at bedtime. SOCIAL HISTORY: He is a former smoker, quit in the mid 70s. PAST SURGICAL HISTORY: Radiation therapy for prostate cancer, cholecystectomy and endoscopy. [address] [address] CONSULTATION Name: MARIE YIP Lenora [id number] Admission: 09/21/18 Attend Phys: Edgardo Salinas MD Discharge: Date of : 32 Report #: [id number] REVIEW OF SYSTEMS: GENERAL: No fevers or chills. PULMONARY: No wheezing. Positive cough. CARDIOVASCULAR: Positive chest pain. No orthopnea. No dyspnea. GASTROINTESTINAL: No fevers or chills. SKIN: No edema. MUSCULOSKELETAL: No recent falls. SOCIAL HISTORY: He is recently . He lives alone. FAMILY HISTORY: Noncontributory. PHYSICAL EXAMINATION: VITAL SIGNS: Blood pressure is 117/61, pulse is 63, respiratory rate is 18 and O2 sats 94%. GENERAL: This is a thin elderly male who is alert, in no apparent distress, good historian. HEENT: Unremarkable. No facial asymmetry. NECK: Supple. No jugular venous distention. CARDIOVASCULAR: Regular. I cannot hear a murmur or S3. LUNGS: Clear to auscultation. NEUROLOGICAL: No focal deficits. RADIOLOGICAL DATA: Electrocardiogram as noted above shows sinus rhythm, nonspecific T-wave abnormality. LABORATORY DATA: Hemoglobin level is 12.7 and platelet count is 233,000. Sodium is 139, potassium is 4.3, chloride is 106, BUN is 19 and creatinine is 1.9. Troponin-I is 0.06 x 3 sets. IMPRESSION: 1. Chest pain. His symptoms have a component, which is compatible with possibly angina and that they are relieved with nitroglycerin, but there also pinpoint and reproducible. It could be musculoskeletal as he has been coughing. 2. Coronary artery disease. He has a known history of prior percutaneous coronary intervention to his left anterior descending and oewhhoua-xb-xlnker disease in other coronary artery territories. I think it is reasonable to evaluate him with a pharmacologic stress test. Unless there are any significant abnormalities, we will proceed with continued medical therapy. 3. Chronic kidney disease as noted above. We will take this into consideration for any invasive evaluation. [address] [address] CONSULTATION Name: PHIMARIE Room #: 216-P [facility] Adrian Mejias#: [id number] Admission: 09/21/18 Attend Phys: Edgardo Salinas MD Discharge: Date of : 32 Report #: [id number] 4. Hypertension, stable. 5. Hyperlipidemia. Continue with his Crestor. By: [id number] Kenneth Banks MD, FACC /nt
[~2018-09-21 13:07] MED LIST changes: +NITROGLYCERIN0.4 MG SUBLING
[2018-09-21 13:09] VITALS: BP 121/26
[2018-09-21 13:55] LABS: BASOPHILS 0.5 % (0.0-2.0); EOSINOPHILS 3.6 % (0.0-3.0); HEMOGLOBIN 13.9 gm/dL (14.0-18.0); LYMPHOCYTES 23.2 % (24.0-44.0); MCH 29.6 pg (26.0-34.0); MCHC 33.9 g/dL (28.0-37.0); MCV 87.4 fL (80.0-100.0); MONOCYTES 8.6 % (1.0-8.0); PLATELET COUNT 230 thou/uL (150-400); POLYS 64.1 % (36.0-66.0); RBC 4.69 mil/uL (4.50-6.00); WBC 9.4 thou/uL (4.0-11.0)
[2018-09-21 13:59] LABS: ANION GAP 9 mmol/L (7-16); BUN 19 mg/dL (7-18); CALCIUM 9.1 mg/dL (8.5-10.1); CHLORIDE 104 mmol/L (98-107); CO2 25 mmol/L (21-32); CREATININE 1.8 mg/dL (0.7-1.3); GLUCOSE 88 mg/dL (74-106); POTASSIUM 4.3 mmol/L (3.5-5.1); SODIUM 138 mmol/L (136-145)
[2018-09-21 14:08] LABS: TROPONIN-I <0.06 ng/mL (<0.06)
[2018-09-21 16:59] VITALS: BP 130/67; BP 145/60
[2018-09-21 17:08] VITALS: BP 139/66
--- NOTE | 2018-09-21 18:41 | NUR ---
PATIENT ADMITTED FROM ED DEPARTMENT COMPLAINING OF CHEST PAIN, CURRENT PAIN LEVEL 2/10. ALERT AND ORIENTED X4, HARD OF HEARING. 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 ON ROOM AIR. UP INDEPENDENTLY. TOLERATING DIET. FAMILY AND PATIENT UPDATED ON THE PLAN OF CARE. NO SIGNS OF ACUTE DISTRESS NOTED AT THIS TIME. WILL CONTINUE TO MONITOR.
[2018-09-21 19:55] VITALS: BP 146/90
[2018-09-21 23:20] VITALS: BP 146/90
[2018-09-21 23:35] VITALS: BP 97/57
--- NOTE | 2018-09-22 03:16 | NUR ---
ASSUMED PT CARE AT 1900. PT A/OX4, VITAL SIGNS STABLE, ASSESSMENT CHARTED. 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 PT REQUESTED FOR SOME PAIN MEDICATION BUT WANTED IT IF THE PAIN REMAINED CONSTANT. PT HOWEVER RESTED WELL THROUGH THE NIGHT WITH NO FURTHER CONPLAINTS OF THE PAIN. TROPONIN DRAWN AT THE START OF THE SHIFT WAS <0.06. PT PROGRESSING TOWARD PLAN OF CARE. WILL CONTINUE TO CLOSELY MONITOR.
[2018-09-22 04:29] VITALS: BP 117/61
[2018-09-22 06:15] LABS: HEMATOCRIT 37.3 % (42.0-52.0); HEMOGLOBIN 12.7 gm/dL (14.0-18.0); MCHC 34.2 g/dL (28.0-37.0); RBC 4.39 mil/uL (4.50-6.00); RDW 14.1 % (10.5-14.5); WBC 8.4 thou/uL (4.0-11.0)
[2018-09-22 06:34] LABS: ANION GAP 8 mmol/L (7-16); BUN 19 mg/dL (7-18); CALCIUM 8.8 mg/dL (8.5-10.1); CHLORIDE 106 mmol/L (98-107); CO2 25 mmol/L (21-32); CREATININE 1.9 mg/dL (0.7-1.3); GLUCOSE 95 mg/dL (74-106); POTASSIUM 4.3 mmol/L (3.5-5.1); SODIUM 139 mmol/L (136-145); TROPONIN-I <0.06 ng/mL (<0.06)
[2018-09-22 09:10] VITALS: BP 122/63
--- NOTE | 2018-09-22 10:56 | EKG ---
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
[2018-09-22 16:20] VITALS: BP 124/59
[2018-09-22 19:37] VITALS: BP 130/66
[2018-09-22 23:58] VITALS: BP 130/66
[2018-09-23 03:52] LABS: ANION GAP 10 mmol/L (7-16); BUN 20 mg/dL (7-18); CALCIUM 9.4 mg/dL (8.5-10.1); CHLORIDE 103 mmol/L (98-107); CO2 25 mmol/L (21-32); GLUCOSE 103 mg/dL (74-106); MAGNESIUM 2.1 mg/dL (1.8-2.4); POTASSIUM 4.2 mmol/L (3.5-5.1); SODIUM 138 mmol/L (136-145); TROPONIN-I <0.06 ng/mL (<0.06)
[2018-09-23 04:06] VITALS: BP 121/55
[2018-09-23 04:15] LABS: HEMATOCRIT 42.3 % (42.0-52.0); HEMOGLOBIN 14.2 gm/dL (14.0-18.0); MCH 29.6 pg (26.0-34.0); MCHC 33.7 g/dL (28.0-37.0); MCV 87.9 fL (80.0-100.0); RBC 4.81 mil/uL (4.50-6.00); RDW 14.6 % (10.5-14.5); WBC 10.4 thou/uL (4.0-11.0)
--- NOTE | 2018-09-23 04:32 | NUR ---
ASSUMED PT CARE AT 1900. PT A/OX4, VITAL SIGNS STABLE, ASSESSMENT CHARTED. NO COMPLAINTS OF CHEST PAIN/PAIN. PT TOOK A SHOWER INDEPENDENTLY, TOLERATED ACTIVITY APPROPRIATELY. PT WAS NOT ABLE TO GET SOME SLEEP, AND AT ABOUT 0200, REQUESTED A SLEEPING PILL. COMMERCIAL RELATIONSHIP MANAGER WAS CALLED AND AN ORDER FOR MELATONIN WAS RECIEVED. PT REFUSED TO TAKE MELATONIN AND STATED IT WILL NOT HELP HIM FALL ASLEEP AND HE WANTED A STRONGER SLEEPING PILL, AMBIEN PREFERABLY. PT'S REQUEST WAS COMMUNICATED TO COMMERCIAL RELATIONSHIP MANAGER. COMMERCIAL RELATIONSHIP MANAGER EXPLAINED THAT AMBIEN HAS STRONGER SIDE EFFECTS WHICH MY INTERFERE WITH PT'S DAY ACTIVITIES AND POSSIBLY WITH CURRENT MEDICATIONS SINCE HE HAS NEVER TAKEN AMBIEN BEFORE AND ALSO CONSIDERING HIS AGE. COMMERCIAL RELATIONSHIP MANAGER HOWEVER PRESCRIBED SOME DIPHENHYDRAMINE TOGETHER WITH MELATONIN. PT REFUSED TO TAKE BOTH, STATING THAT IT WILL NOT HELP. EDUCATION WAS GIVEN REGARDING THE IMPORTANCE OF THE TESTS SCHEDULED FOR AM AND WHY IT WAS IMPORTANT HE BE AWAKE AND NOT DROWSY. EDUCATION ALSO COMPLETED ABOUT POSSIBLE SIDE EFFECTS OF TAKING AMBIEN. PT STILL UPSET AND REQUESTED TO TALK TO THE HOSPITAL ADMINISTRATION. CHARGE NURSE AND LOGGING ASSISTANT WERE NOTIFIED AND SPOKE WITH PATIENT. PT FINALLY AGREED TO TAKE THE MELATIONIN AND DIPHENHYDRAMINE WHICH SEEMED TO HELP HIM FALL ASLEEP. PT RESTED WELL AFTER. PROGRESSING TOWARD PLAN OF CARE. NPO SINCE MIDNIGHT. STRESS TEST IN AM. WILL CONTINUE TO MONITOR.
[2018-09-23 07:45] VITALS: BP 132/73
--- NOTE | 2018-09-23 08:25 | NUR ---
PT WILL GO FOR STRESS TEST THIS AM. STATES THAT HIS DIZZYNESS HAS RESOLVED.
--- NOTE | 2018-09-23 11:10 | NUR ---
PT OFF UNIT TO NUCMED.
[2018-09-23 14:25] VITALS: BP 144/78
--- NOTE | 2018-09-23 14:43 | NUR ---
PT RETURN TO UNIT ATOUND 1400.
[2018-09-23 16:10] VITALS: BP 144/78
--- NOTE | 2018-09-23 16:26 | NUR ---
IV AND TELE DISOCNTINUED. PT DISCHARGED TO HOME VIA PRIVATE VEHICLE.
== END 2018-09-23 16:41 | disposition home or self-care (01) | DRG 313 ==
LOC: ER 13:07 → EROBS 15:40 → 2N 17:07
PROVIDERS: Emergency Medicine; ADMIT Internal Medicine
DX: R07.89 Other chest pain (principal); E78.00 Pure hypercholesterolemia, unspecified; I25.10 Atherosclerotic heart disease of native coronary artery without angina pectoris; N18.3 Chronic kidney disease, stage 3 (moderate); E78.5 Hyperlipidemia, unspecified; F41.1 Generalized anxiety disorder; I12.9 Hypertensive chronic kidney disease with stage 1 through stage 4 chronic kidney disease, or unspecified chronic kidney disease; K57.90 Diverticulosis of intestine, part unspecified, without perforation or abscess without bleeding; I48.91 Unspecified atrial fibrillation; F32.9 Major depressive disorder, single episode, unspecified; Z98.41 Cataract extraction status, right eye; Z98.42 Cataract extraction status, left eye; Z90.49 Acquired absence of other specified parts of digestive tract; Z92.3 Personal history of irradiation; Z85.46 Personal history of malignant neoplasm of prostate; Z87.891 Personal history of nicotine dependence; Z95.5 Presence of coronary angioplasty implant and graft; Z79.82 Long term (current) use of aspirin
CPT/HCPCS: 10081

== ENCOUNTER 2018-10-27 12:03 | Emergency (ER) | payer OTHER ==
[~2018-10-27] VITALS: Ht 170.2 cm; Wt 81.7 kg
[2018-10-27] MEDS ORDERED: LISINOPRIL10 MG PO (12:42)
[2018-10-27 13:59] VITALS: BP 138/70
== END 2018-10-27 12:51 | disposition home or self-care (01) ==
LOC: ER 12:03
DX: I12.9 Hypertensive chronic kidney disease with stage 1 through stage 4 chronic kidney disease, or unspecified chronic kidney disease (principal); Z76.0 Encounter for issue of repeat prescription; E78.00 Pure hypercholesterolemia, unspecified; F41.9 Anxiety disorder, unspecified; F32.9 Major depressive disorder, single episode, unspecified; Z95.5 Presence of coronary angioplasty implant and graft; I48.91 Unspecified atrial fibrillation; N18.3 Chronic kidney disease, stage 3 (moderate); Z87.891 Personal history of nicotine dependence

== ENCOUNTER 2019-01-07 09:39 | Emergency (ER) | payer OTHER ==
[~2019-01-07] VITALS: Ht 170.2 cm; Wt 81.7 kg
[~2019-01-07 09:39] MED LIST changes: +LISINOPRIL10 MG PO
[2019-01-07 10:11] LABS: ABSOLUTE NEUTROPHILS 4.1 thou/uL (1.4-8.2); BASOPHILS 1.1 % (0.0-2.0); EOSINOPHILS 4.5 % (0.0-3.0); HEMOGLOBIN 13.8 gm/dL (14.0-18.0); LYMPHOCYTES 34.9 % (24.0-44.0); MCH 29.4 pg (26.0-34.0); MCHC 33.7 g/dL (28.0-37.0); MCV 87.1 fL (80.0-100.0); PLATELET COUNT 235 thou/uL (150-400); POLYS 49.5 % (36.0-66.0); RDW 14.4 % (10.5-14.5); WBC 8.3 thou/uL (4.0-11.0)
[2019-01-07 10:14] LABS: ANION GAP 10 mmol/L (7-16); BUN 22 mg/dL (7-18); CALCIUM 8.7 mg/dL (8.5-10.1); CHLORIDE 105 mmol/L (98-107); CO2 24 mmol/L (21-32); GLUCOSE 126 mg/dL (74-106); POTASSIUM 4.3 mmol/L (3.5-5.1); SODIUM 139 mmol/L (136-145)
[2019-01-07 10:22] LABS: APTT 29.7 Seconds (24.5-32.8); PROTIME 10.4 Seconds (9.3-11.4)
[2019-01-07 10:24] LABS: ALBUMIN 3.5 g/dL (3.4-5.0); SGOT 19 U/L (15-37); SGPT 21 U/L (30-65); TOTAL BILIRUBIN 0.4 mg/dL (<0.1-1.0); TOTAL PROTEIN 6.8 g/dL (6.4-8.2); TROPONIN-I <0.06 ng/mL (<0.06)
[2019-01-07] MEDS ORDERED: PREDNISONE 20 M20 MG PO (12:23)
[2019-01-07] MEDS ORDERED: TRAMADOL 50 MG50 MG PO (12:23)
[2019-01-07 12:39] VITALS: BP 131/64
--- NOTE | 2019-01-08 08:09 | EKG ---
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 : 1930 Requested By: Bhanu Parry Order Number: [id number] MD: Adam Almanza Measurements Intervals [place] Rate: 64 P: -29 UT: 199 QRS: -29 QRSD: 87 T: 94 QT: 418 QTc: 432 Interpretive Statements Sinus rhythm Borderline left axis deviation Abnormal R-wave progression, early transition Borderline T wave abnormalities Compared to ECG 09/21/2018 13:15:19 No significant changes Electronically Signed On 01-08-2019 8:09:37 CDT by Adam Almanza [email or web address] ��������������������������������������������� <ELECTRONICALLY SIGNED> ���������������������������������������� By: Adam Almanza MD ��������������������������������������������� [id number] Adam Almanza MD /HIMA
== END 2019-01-07 12:40 | disposition home or self-care (01) ==
LOC: ER 09:39
PROVIDERS: Emergency Medicine
DX: R07.89 Other chest pain (principal); I12.9 Hypertensive chronic kidney disease with stage 1 through stage 4 chronic kidney disease, or unspecified chronic kidney disease; N18.3 Chronic kidney disease, stage 3 (moderate); E78.00 Pure hypercholesterolemia, unspecified; I25.10 Atherosclerotic heart disease of native coronary artery without angina pectoris; F41.9 Anxiety disorder, unspecified; F32.9 Major depressive disorder, single episode, unspecified; Z90.49 Acquired absence of other specified parts of digestive tract; Z87.891 Personal history of nicotine dependence

== ENCOUNTER 2019-01-15 10:05 | Emergency (ER) | payer OTHER ==
[~2019-01-15] VITALS: Ht 170.2 cm; Wt 81.7 kg
[~2019-01-15 10:05] MED LIST changes: +TRAMADOL 50 MG50 MG PO
[2019-01-15 10:28] LABS: HEMATOCRIT 41.6 % (42.0-52.0); HEMOGLOBIN 14.1 gm/dL (14.0-18.0); MCH 29.9 pg (26.0-34.0); MCV 87.9 fL (80.0-100.0); PLATELET COUNT 235 thou/uL (150-400); RBC 4.73 mil/uL (4.50-6.00); RDW 14.5 % (10.5-14.5); WBC 8.5 thou/uL (4.0-11.0)
[2019-01-15 10:39] LABS: ANION GAP 6 mmol/L (7-16); BUN 23 mg/dL (7-18); CALCIUM 9.2 mg/dL (8.5-10.1); CHLORIDE 105 mmol/L (98-107); CO2 26 mmol/L (21-32); CREATININE 1.9 mg/dL (0.7-1.3); GLUCOSE 106 mg/dL (74-106); POTASSIUM 4.4 mmol/L (3.5-5.1); SODIUM 137 mmol/L (136-145)
[2019-01-15 10:50] LABS: ALBUMIN 3.7 g/dL (3.4-5.0); SGOT 24 U/L (15-37); SGPT 25 U/L (30-65); TOTAL BILIRUBIN 0.4 mg/dL (<0.1-1.0); TOTAL PROTEIN 7.3 g/dL (6.4-8.2); TROPONIN-I <0.06 ng/mL (<0.06)
[2019-01-15 11:08] LABS: ABSOLUTE NEUTROPHILS 4.2 thou/uL (1.4-8.2); PLATELET ESTIMATE NORMAL
[2019-01-15 11:47] LABS: URINE BILIRUBIN NEGATIVE (Negative); URINE BLOOD TRACE (Negative); URINE CLARITY CLEAR; URINE COLOR YELLOW; URINE GLUCOSE-RANDOM* NEGATIVE (Negative); URINE KETONES NEGATIVE (Negative); URINE LEUKOCYTES-REFLEX NEGATIVE (Negative); URINE NITRITE-REFLEX NEGATIVE (Negative); URINE PROTEIN (DIPSTICK) NEGATIVE (Negative); URINE SPECIFIC GRAVITY <= 1.005 (1.005-1.035); URINE UROBILINOGEN 0.2 E.U./dl (0.2-1.0)
[2019-01-15 13:42] VITALS: BP 132/87
--- NOTE | 2019-01-16 09:12 | EKG ---
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: ALDO : 1930 Requested By: Tyra Bearden Order Number: [id number] MD: Beka Husain Measurements Intervals [place] Rate: 70 P: -19 IN: 194 QRS: -31 QRSD: 87 T: 87 QT: 401 QTc: 433 Interpretive Statements Sinus rhythm Ventricular premature complex Left axis deviation Compared to ECG 01/07/2019 09:45:41 Ventricular premature complex(es) now present T-wave abnormality no longer present Electronically Signed On 01-16-2019 9:12:33 CDT by Beka Husain [email or web address] ��������������������������������������������� <ELECTRONICALLY SIGNED> ���������������������������������������� By: Beka Husain MD, [facility] ��������������������������������������������� 01/16/1912 1016 1016 Beka Husain MD, [facility] /EPI
--- NOTE | 2019-01-16 20:50 | HC ---
[facility] [place] [address] CONSULTATION Name: MARIE YIP Room #: DEP Magalie#: [id number] Admission: 01/15/19 ������������������ Attend Phys: Discharge: 01/15/19 ������������������ Date of : 32 Report #: [id number] THIS REPORT FOR: //name// CC: Tyra Bearden Andrea Amador DATE OF SERVICE: 01/15/2019 PLACE OF EVALUATION: Emergency Room at [facility], [place], [place], seen in ER bed #3. REQUESTING PHYSICIAN: Seen at the request of Tyra Bearden. ATTENDING PHYSICIAN: Milan Madera. REASON FOR CONSULTATION: Cognitive impairment, concern for self-care failure, depression and complicated grief. HISTORY OF PRESENT ILLNESS: This is an 88-year-old male, approximately one year ago, living independently in the [place], [place] area. The patient is accompanied by his son. His daughter is a primary care physician in the [place] of [place], Dr. Sandra Yip. The patient presented to the Emergency Room today with the complaint of headache, dizziness, weakness and hypotension. This is the patient's second Emergency Room visit in about 7 days. His prior visit was for chest pain. His blood pressure prior to arrival was 72/48. Symptoms began yesterday. He rates his headache 8/10, locates head pain in the posterior region of the head. He also reports having chest tightness and diarrhea. He was not able to state when the chest tightness began. The patient takes Coumadin chronically. He denied to the ER, fevers, chills, nausea, vomiting, diarrhea, shortness of breath, vision changes, numbness or tingling. No other complaints. His son, I believe his name is Rich, states the patient has had dizziness for several weeks. He was seen in the ED about 1-1/2 weeks ago for dizziness. The patient has severe short-term memory loss. He does not drink much water. He lives at home alone. ADDITIONAL INFORMATION: The patient denied having functional daily living problems or cognitive problems. I took the liberty of administering the [facility] Mental Status examination under strict criteria. The patient scored a 10/30. Deficits were 0/3 for money management; 2/3 on verbal fluency, that is animal naming; 2/5 on delayed recall; 1/2 on reverse digit span, he could only do up to 3 digits on 4 digits and clock drawing was 2/4, he did not distinguish the hands between minutes and hours, visual spatial stuff. The patient did not put an excellent triangle. He put in an excellent square and did not identify the triangles, the largest object and he gave poor effort to the cued recall, that is the paragraph question, so that was 0/8. The patient does have hearing impairment and did have to be talked to in close proximity to [address] [address] CONSULTATION Name: PHIMARIE Room #: DEP ADRI Mejias#: [id number] Admission: 01/15/19 ������������������ Attend Phys: Discharge: 01/15/19 ������������������ Date of : 32 Report #: [id number] his ears, but I do believe he understood what was said. His PCP is Dr. Andrea Amador and clinical staff rn is Dr. Marks. PAST MEDICAL HISTORY: Includes high cholesterol; left shoulder degenerative joint disease, [id number]; coronary artery disease and benign polyp. He has a history of a plastic stent in the right ear for hearing in 1999. Gastroesophageal bleed, renal insufficiency, CKD stage II, history of prostate cancer with radiation, cataracts, bilateral extraction, cardiac stent in 2008 to the LAD, catheterization in 2012 with no stenosis, cholecystectomy, endoscopy with dilatation in 2012, hyperkalemia, costochondritis, diverticulosis, right renal cyst, colonoscopy and endoscopy and blood in stool, 06/19/2015. He had a C. diff infection in 06/2015; atrial fibrillation, 06/26/2015. He had a negative stress test on 06/28/2015. HOME MEDICATIONS: Aspirin 81 mg p.o. daily, citalopram 20 mg p.o. daily, hydrocodone/acetaminophen 1 tablet p.o. daily, Plavix 75 mg p.o. daily, niacin 1000 mg p.o. at bedtime, alprazolam 0.5 mg p.o. daily, rosuvastatin 10 mg p.o. daily, metoprolol tartrate 25 mg p.o. daily and docosahexaenoic acid 1000 mg daily, but that fish oil actually. ALLERGIES: No known allergies. SOCIAL HISTORY: Tobaccoism remotely. REVIEW OF SYSTEMS: Completed by the Emergency Room staff: CONSTITUTIONAL: Denies fever, chills, malaise or unexpected weight change. EYES: Denies eye pain, visual change or discharge. HENT: Denies hearing changes or ear drainage, ear infections, ear pain, neck pain or neck stiffness. RESPIRATORY: Denies cough, shortness of breath, hemoptysis or respiratory distress. CARDIOVASCULAR: Denies chest pain with exertion or edema. GASTROINTESTINAL: Denies abdominal pain, nausea or vomiting. GENITOURINARY: Denies burning, frequency or dysuria. MUSCULOSKELETAL: Denies back pain, joint pain, muscle weakness or myalgias. SKIN: Denies rash. PSYCH: Denies as above. Otherwise 10-point review of systems was negative. PHYSICAL EXAMINATION: VITAL SIGNS: In the ER, pulse 96, BP 128/62, temperature 36.8, pulse 74 and respirations 17. Weight 81.65 kilos, which is 180 pounds. The patient's physical exam was generally unremarkable. LABORATORY DATA: The patient's 12-lead EKG showed sinus rhythm, rate of 70, left axis deviation, some PVCs. No STEMI criteria. [facility] [address] [place] [address] CONSULTATION Name: MARIE YIP Room #: [facility]#: [id number] Admission: 01/15/19 ������������������ Attend Phys: Discharge: 01/15/19 ������������������ Date of : 32 Report #: [id number] Lab abnormalities, trace blood and urine. Electrolytes, anion gap is 6, BUN 23 and creatinine 1.9. ALT 25. Hematocrit 41.6 and eosinophils 6%. For my examination, lab values as mentioned are the most significant. Chest x-ray was done in the ER, which was read as mildly increased medial basilar density, suggesting atelectasis or rather pneumonitis. Head CT was performed, read by radiologist. There is no acute intracranial abnormality. There are age-related findings including symmetric cerebral and cerebellar volume loss, which would argue in favor of dementia process, atherosclerosis and chronic central right minor microvascular change. There is some asymmetry in the cerebral posterior region, however, it is not clear stroke pathology. MENTAL STATUS EXAMINATION: This is a well-developed, slightly disheveled male, apparently stated age. Attention limited. Concentration limited. Speech is normal rate. Thought process linear and limited. Thought content, relative poverty of thought when he is thinking, focused on his 's passing. No psychomotor agitation. No psychomotor retardation. Denied auditory, visual or tactile hallucinations. Denied suicidal intent or plan. Denied hopelessness or helplessness. Denied homicidal intent or plan. Memory formally tested and was grossly impaired, as described in the SLUMS. Insight limited. Judgment impaired. Fund of knowledge well below average. ASSESSMENT: An 88-year-old male presenting for dizziness and hypotension. 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 MEDICAL COMORBIDITIES: Include hypertension and dehydration. RECOMMENDATIONS: At this time, I discussed with the patient's DPOA likely he has a major neurocognitive disorder. I do not think that clinical depression or a complicated grief would be enough to explain the magnitude of deficits. I am concerned about the patient living safely independently. I recommend him to have 24-hour assistance and supervision. The DPOA, Dr. Sandra Yip, reports she will see to that. In the interim, we want to explore options with a primary care physician. They did not want the patient admitted to the [facility] at [facility]. I stated if they change their mind or events occur, they are certainly welcome to bring him back to the Emergency Room. The case was discussed with Tyra, who is managing him from the ED standpoint. [address] [address] CONSULTATION Name: MARIE YIP Room #: DEP ADRI Mejias#: [id number] Admission: 01/15/19 ������������������ Attend Phys: Discharge: 01/15/19 ������������������ Date of : 32 Report #: [id number] Time spent on interview of records, coordination of care, phone call to the DPOA as well as interview with the son is approximately 45 minutes. ��������������������������������������������� <ELECTRONICALLY SIGNED> ���������������������������������������� By: Bear Murphy DO ��������������������������������������������� 01/16/192049 1343 0535 Bear Murphy DO /nt
== END 2019-01-15 12:42 | disposition home or self-care (01) ==
LOC: ER 10:05
PROVIDERS: Nurse Practitioner Family
DX: E86.0 Dehydration (principal); R53.1 Weakness; R42 Dizziness and giddiness; E78.00 Pure hypercholesterolemia, unspecified; I25.10 Atherosclerotic heart disease of native coronary artery without angina pectoris; F41.9 Anxiety disorder, unspecified; F32.9 Major depressive disorder, single episode, unspecified; I48.91 Unspecified atrial fibrillation; I12.9 Hypertensive chronic kidney disease with stage 1 through stage 4 chronic kidney disease, or unspecified chronic kidney disease; N18.3 Chronic kidney disease, stage 3 (moderate); Z85.46 Personal history of malignant neoplasm of prostate; Z95.5 Presence of coronary angioplasty implant and graft; Z90.49 Acquired absence of other specified parts of digestive tract; Z87.891 Personal history of nicotine dependence

== ENCOUNTER 2019-03-12 19:45 | Emergency (ER) | payer OTHER ==
[~2019-03-12] VITALS: Ht 170.2 cm; Wt 81.7 kg
[2019-03-12 20:57] LABS: ABSOLUTE NEUTROPHILS 6.1 thou/uL (1.4-8.2); BASOPHILS 0.6 % (0.0-2.0); EOSINOPHILS 3.7 % (0.0-3.0); HEMOGLOBIN 14.5 gm/dL (14.0-18.0); LYMPHOCYTES 28.5 % (24.0-44.0); MCH 29.4 pg (26.0-34.0); MCHC 33.7 g/dL (28.0-37.0); MCV 87.1 fL (80.0-100.0); MONOCYTES 10.5 % (1.0-8.0); PLATELET COUNT 232 thou/uL (150-400); POLYS 56.7 % (36.0-66.0); RBC 4.94 mil/uL (4.50-6.00); RDW 14.3 % (10.5-14.5); WBC 10.8 thou/uL (4.0-11.0)
[2019-03-12 21:04] LABS: CALCIUM 9.7 mg/dL (8.5-10.1); CREATININE 1.8 mg/dL (0.7-1.3)
[2019-03-12 21:09] LABS: ALBUMIN 4.1 g/dL (3.4-5.0); TOTAL BILIRUBIN 0.3 mg/dL (<0.1-1.0); TOTAL PROTEIN 7.8 g/dL (6.4-8.2)
[2019-03-12 21:35] LABS: URINE BILIRUBIN NEGATIVE (Negative); URINE BLOOD NEGATIVE (Negative); URINE CLARITY CLEAR; URINE COLOR YELLOW; URINE GLUCOSE-RANDOM* NEGATIVE (Negative); URINE KETONES NEGATIVE (Negative); URINE LEUKOCYTES-REFLEX NEGATIVE (Negative); URINE NITRITE-REFLEX NEGATIVE (Negative); URINE PROTEIN (DIPSTICK) NEGATIVE (Negative); URINE SPECIFIC GRAVITY <= 1.005 (1.005-1.035); URINE UROBILINOGEN 0.2 E.U./dl (0.2-1.0)
[2019-03-12 22:17] VITALS: BP 157/71
--- NOTE | 2019-03-13 08:18 | EKG ---
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: : 1930 Requested By: Bhanu Parry Order Number: [id number] MD: Beka Husain Measurements Intervals [place] Rate: 73 P: 56 NM: 218 QRS: -24 QRSD: 94 T: 69 QT: 399 QTc: 440 Interpretive Statements Sinus rhythm Ventricular premature complex Borderline prolonged NM interval Borderline left axis deviation Compared to ECG 01/15/2019 10:16:31 No significant changes Electronically Signed On 03-13-2019 8:18:02 CDT by Beka Husain [email or web address] ��������������������������������������������� <ELECTRONICALLY SIGNED> ���������������������������������������� By: Beka Husain MD, [facility] ��������������������������������������������� 03/13/19 08 47 47 Beka Husain MD, FACC /EPI
== END 2019-03-12 22:17 | disposition home or self-care (01) ==
LOC: ER 19:45
PROVIDERS: Physician Assistant
DX: R10.84 Generalized abdominal pain (principal); R19.7 Diarrhea, unspecified; I12.9 Hypertensive chronic kidney disease with stage 1 through stage 4 chronic kidney disease, or unspecified chronic kidney disease; N18.3 Chronic kidney disease, stage 3 (moderate); I48.91 Unspecified atrial fibrillation; I25.10 Atherosclerotic heart disease of native coronary artery without angina pectoris; E78.00 Pure hypercholesterolemia, unspecified; Z90.49 Acquired absence of other specified parts of digestive tract; Z95.5 Presence of coronary angioplasty implant and graft; Z87.891 Personal history of nicotine dependence; Z79.899 Other long term (current) drug therapy; Z79.82 Long term (current) use of aspirin; Z86.010 Personal history of colon polyps; Z85.46 Personal history of malignant neoplasm of prostate

== ENCOUNTER 2019-07-02 15:53 | Emergency (ER) | payer OTHER ==
[~2019-07-02] VITALS: Ht 172.7 cm; Wt 82.1 kg
--- NOTE | 2019-07-02 16:50 | EKG ---
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 : 1930 Requested By: Elena Haque Order Number: [id number] MD: Adam Almanza Measurements Intervals [place] Rate: 60 P: -7 IL: 217 QRS: -33 QRSD: 90 T: 115 QT: 418 QTc: 418 Interpretive Statements Sinus rhythm Borderline prolonged [place] interval Left axis deviation Abnormal R-wave progression, early transition Nonspecific T abnormalities, lateral leads Compared to ECG 03/12/2019 20:48:09 T-wave abnormality now present Ventricular premature complex(es) no longer present Electronically Signed On 07-02-2019 16:50:37 DISABILITY MANAGER by Adam Almanza [email or web address] <ELECTRONICALLY SIGNED> By: Adam Almanza MD 07/02/19 [id number] Adam Almanza MD /EPI
[2019-07-02 17:11] LABS: ABSOLUTE NEUTROPHILS 5.4 thou/uL (1.4-8.2); BASOPHILS 0.7 % (0.0-2.0); EOSINOPHILS 4.1 % (0.0-3.0); HEMATOCRIT 44.1 % (42.0-52.0); HEMOGLOBIN 14.7 gm/dL (14.0-18.0); LYMPHOCYTES 24.2 % (24.0-44.0); MCH 29.3 pg (26.0-34.0); MCHC 33.2 g/dL (28.0-37.0); MCV 88.2 fL (80.0-100.0); MONOCYTES 10.4 % (1.0-8.0); PLATELET COUNT 250 thou/uL (150-400); POLYS 60.6 % (36.0-66.0); RDW 14.1 % (10.5-14.5); WBC 8.9 thou/uL (4.0-11.0)
[2019-07-02 17:12] LABS: URINE BILIRUBIN NEGATIVE (Negative); URINE BLOOD NEGATIVE (Negative); URINE CLARITY CLEAR; URINE COLOR YELLOW; URINE GLUCOSE-RANDOM* NEGATIVE (Negative); URINE KETONES NEGATIVE (Negative); URINE LEUKOCYTES-REFLEX NEGATIVE (Negative); URINE NITRITE-REFLEX NEGATIVE (Negative); URINE PROTEIN (DIPSTICK) NEGATIVE (Negative); URINE SPECIFIC GRAVITY <= 1.005 (1.005-1.035); URINE UROBILINOGEN 0.2 E.U./dl (0.2-1.0)
[2019-07-02 17:19] LABS: CALCIUM 9.5 mg/dL (8.5-10.1); CREATININE 1.8 mg/dL (0.7-1.3)
[2019-07-02 18:42] VITALS: BP 132/86
== END 2019-07-02 18:30 | disposition home or self-care (01) ==
LOC: ER 15:53
PROVIDERS: Nurse Practitioner
DX: R51 Headache (principal); R42 Dizziness and giddiness; I12.9 Hypertensive chronic kidney disease with stage 1 through stage 4 chronic kidney disease, or unspecified chronic kidney disease; N18.3 Chronic kidney disease, stage 3 (moderate); I48.91 Unspecified atrial fibrillation; E78.00 Pure hypercholesterolemia, unspecified; F41.9 Anxiety disorder, unspecified; F32.9 Major depressive disorder, single episode, unspecified; Z85.46 Personal history of malignant neoplasm of prostate; Z87.891 Personal history of nicotine dependence

== ENCOUNTER 2019-12-04 18:54 | Observation (INO) | payer OTHER ==
[~2019-12-04] VITALS: Ht 170.2 cm; Wt 76.2 kg
[2019-12-04 18:55] VITALS: BP 116/59
[2019-12-04 19:10] LABS: ABSOLUTE NEUTROPHILS 5.1 thou/uL (1.4-8.2); BASOPHILS 0.8 % (0.0-2.0); EOSINOPHILS 3.3 % (0.0-3.0); HEMATOCRIT 41.4 % (42.0-52.0); HEMOGLOBIN 14.1 gm/dL (14.0-18.0); LYMPHOCYTES 32.4 % (24.0-44.0); MCH 30.6 pg (26.0-34.0); MCHC 34.1 g/dL (28.0-37.0); MCV 89.7 fL (80.0-100.0); MONOCYTES 10.2 % (1.0-8.0); PLATELET COUNT 251 thou/uL (150-400); POLYS 53.3 % (36.0-66.0); RBC 4.62 mil/uL (4.50-6.00); RDW 14.4 % (10.5-14.5); WBC 9.6 thou/uL (4.0-11.0)
[2019-12-04 19:17] LABS: ANION GAP 8 mmol/L (7-16); BUN 26 mg/dL (7-18); CALCIUM 8.5 mg/dL (8.5-10.1); CHLORIDE 105 mmol/L (98-107); CO2 26 mmol/L (21-32); CREATININE 1.9 mg/dL (0.7-1.3); GLUCOSE 95 mg/dL (74-106); POTASSIUM 4.1 mmol/L (3.5-5.1); SODIUM 139 mmol/L (136-145)
[2019-12-04 19:26] LABS: ALBUMIN 3.8 g/dL (3.4-5.0); SGOT 18 U/L (15-37); SGPT 27 U/L (30-65); TOTAL BILIRUBIN 0.7 mg/dL (<0.1-1.0); TOTAL PROTEIN 7.1 g/dL (6.4-8.2); TROPONIN-I <0.06 ng/mL (<0.06)
[2019-12-04] MEDS ORDERED: BENICAR20 MG PO (19:57)
[2019-12-04 20:57] VITALS: BP 120/72
[2019-12-04 21:14] VITALS: BP 120/72
[2019-12-04 21:45] LABS: CHOLESTEROL 147 mg/dL (<200); HDL CHOLESTEROL 28 mg/dL (>40); LDL CHOLESTEROL 90 mg/dL (<100); TC:HDL 5.3 Ratio (Not establshd); TRIGLYCERIDE 148 mg/dL (<150); VLDL 30 mg/dL (<40)
[2019-12-04 22:02] VITALS: BP 126/60
[2019-12-05] VITALS (9 sets, daily range): BP systolic 91–143; BP diastolic 48–64
--- NOTE | 2019-12-05 10:08 | 2DMMODE ---
[facility] [address] [place] [address] 2 D/M-MODE ECHOCARDIOGRAM Name: PHIMARIE Room #: 210-P ADM Adrian Mejias#: [id number] Admission: 12/04/19 Attend Phys: Josseline Yoon Discharge: Date of : 32 Report #: [id number] THIS REPORT FOR: cc: Andrea Amador Theodore M. DO Lammoglia, Francisco J. MD ~ APPROVED REPORT Study performed: 12/05/2019 09:17:15 EXAM: Comprehensive 2D, Doppler, and color-flow Echocardiogram Patient Location: Bedside Room #: 210 Status: routine BSA: 1.88 HR: 69 bpm BP: 143/64 mmHg Rhythm: NSR Other Information Study Quality: Adequate Indications Atrial Fibrillation Chest Pain Hx: CAD, stent, PAF, HTN, HLP. 2D Dimensions RVDd: 31.39 mm IVSd: 8.69 (7-11mm) LVOT Diam: 21.33 (18-24mm) LVDd: 47.89 mm PWd: 8.63 (7-11mm) LVDs: 31.72 (25-40mm) Aortic Root: 32.78 mm Volumes Left Atrial Volume (Systole) Single Plane 4CH: 35.12 mL Single Plane 2CH: 61.01 mL LA ESV Index: 26.00 mL/m2 Aortic Valve AoV Peak Michael.: 1.02 m/s AO Peak Gr.: 4.18 mmHg LVOT Max P.20 mmHg LVOT Max V: 0.89 m/s [facility] [address] [place] [address] 2 D/M-MODE ECHOCARDIOGRAM Name: MARIE YIP Room #: 210-P [facility].#: [id number] Admission: 12/04/19 Attend Phys: Josseline Urena Discharge: Date of : 32 Report #: [id number] Vmax: 3.13 cm2 Mitral Valve E/A Ratio: 1.4 MV Decel. Time: 122.45 ms MV E Max Michael.: 0.71 m/s MV A Imchael.: 0.52 m/s MV PHT: 35.51 ms IVRT: 55.36 ms Pulmonary Valve PV Peak Michael.: 0.68 m/s PV Peak Gr.: 1.85 mmHg Pulmonary Vein P Vein S: 0.79 m/s P Vein A: 0.32 m/s P Vein D: 0.62 m/s P Vein A Dur.: 117.6 msec P Vein S/D Ratio: 1.27 Tricuspid Valve TR Peak Michael.: 2.28 m/s TR Peak Gr.: 21.00 mmHg Left Ventricle The left ventricle is normal size. There is normal LV segmental wall motion. There is normal left ventricular wall thickness. Left ventricular systolic function is normal. LVEF is 55-60%. Moderate diastolic dysfunction is present (pseudonormal filling). Right Ventricle The right ventricle is normal size. The right ventricular systolic function is normal. Atria The left atrium size is normal. The right atrium size is normal. Aortic Valve The aortic valve is normal in structure. Trace to mild aortic regurgitation. There is no aortic valvular stenosis. Mitral Valve The mitral valve is normal in structure. Moderate mitral regurgitation. Tricuspid Valve The tricuspid valve is normal in structure. Trace tricuspid [facility] [address] [place] [address] 2 D/M-MODE ECHOCARDIOGRAM Name: PHIMARIE Room #: 210-P [facility] IN M.R.#: [id number] Admission: 12/04/19 Attend Phys: Josseline Urena Discharge: Date of : 32 Report #: [id number] regurgitation. Estimated PAP is 20mmHg plus the right atrial pressure. Pulmonic Valve The pulmonary valve is normal in structure. Trace pulmonic regurgitation. Great Vessels The aortic root is normal in size. Ascending aorta is not well visualized. IVC is not well visualized. Pericardium There is no pericardial effusion. <Conclusion> The left ventricle is normal size. LVEF is 55-60%. The aortic valve is normal in structure. Trace to mild aortic regurgitation. The mitral valve is normal in structure. Moderate mitral regurgitation. The tricuspid valve is normal in structure. Trace tricuspid regurgitation. Estimated PAP is 20mmHg plus the right atrial pressure. The pulmonary valve is normal in structure. Trace pulmonic regurgitation. There is no pericardial effusion. <ELECTRONICALLY SIGNED> By: Davis Hamilton MD 12/05/19 1006 1006 100 Davis Hamilton MD /INF
[2019-12-05 10:36] LABS: CALCIUM 8.8 mg/dL (8.5-10.1); CREATININE 1.9 mg/dL (0.7-1.3); POTASSIUM 4.5 mmol/L (3.5-5.1)
--- NOTE | 2019-12-06 11:48 | EKG ---
[facility] [place] [address] ELECTROCARDIOGRAM REPORT Name: PHIMARIE JIN Room #: 210-[facility] Adrian M.RFelisha#: [id number] Admission: 12/04/19 Attend Phys: Josseline Yoon Discharge: 12/05/19 Date of : 34 Report #: [id number] THIS REPORT FOR: cc: Andrea Amador Theodore M. DO Couchonnal, Luis F. 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 : 1930 Requested By: Juan Carlos Haque Order Number: [id number] MD: Adam Almanza Measurements Intervals [place] Rate: 57 P: 23 DE: 237 QRS: -29 QRSD: 94 T: 74 QT: 437 QTc: 426 Interpretive Statements Sinus rhythm Prolonged DE interval Borderline left axis deviation Abnormal R-wave progression, early transition Nonspecific T abnormalities, lateral leads Compared to ECG 07/02/2019 16:33:29 No significant changes Electronically Signed On 12-06-2019 11:46:22 CDT by Adam Almanza [email or web address] <ELECTRONICALLY SIGNED> By: Adam Almanza MD 12/06/19 1146 54 54 Adam Almanza MD /EPI
--- NOTE | 2019-12-06 11:52 | EKG ---
[facility] [place] [address] ELECTROCARDIOGRAM REPORT Name: PHIMARIE Cooley Room #: 210- DIS Adrian M.RFelisha#: [id number] Admission: 12/04/19 Attend Phys: Josseline Yoon Discharge: 12/05/19 Date of : 32 Report #: [id number] THIS REPORT FOR: cc: Andrea Amador Theodore M. DO Couchonnal, Luis F. 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
== END 2019-12-05 14:05 | disposition home or self-care (01) ==
LOC: ER 18:54 → EROBS 20:41 → 2N 20:41
PROVIDERS: Emergency Medicine; Nurse Practitioner Family; ADMIT Hospitalist
DX: R07.89 Other chest pain (principal); I25.10 Atherosclerotic heart disease of native coronary artery without angina pectoris; E78.5 Hyperlipidemia, unspecified; F41.9 Anxiety disorder, unspecified; I12.9 Hypertensive chronic kidney disease with stage 1 through stage 4 chronic kidney disease, or unspecified chronic kidney disease; N18.3 Chronic kidney disease, stage 3 (moderate); I48.0 Paroxysmal atrial fibrillation; Z87.891 Personal history of nicotine dependence
CPT/HCPCS: 10081

== ENCOUNTER 2019-12-09 10:02 | Inpatient (IN) | payer OTHER ==
[~2019-12-09] VITALS: Ht 170.2 cm; Wt 74.8 kg
[2019-12-09 10:18] VITALS: BP 146/68
[2019-12-09 10:49] LABS: HEMATOCRIT 40.5 % (42.0-52.0); HEMOGLOBIN 13.6 gm/dL (14.0-18.0); MCHC 33.6 g/dL (28.0-37.0); MCV 89.2 fL (80.0-100.0); PLATELET COUNT 222 thou/uL (150-400); RBC 4.54 mil/uL (4.50-6.00); RDW 13.9 % (10.5-14.5); WBC 7.7 thou/uL (4.0-11.0)
[2019-12-09 10:53] LABS: ANION GAP 7 mmol/L (7-16); BUN 22 mg/dL (7-18); CALCIUM 8.9 mg/dL (8.5-10.1); CHLORIDE 102 mmol/L (98-107); CO2 27 mmol/L (21-32); CREATININE 1.8 mg/dL (0.7-1.3); GLUCOSE 107 mg/dL (74-106); POTASSIUM 4.2 mmol/L (3.5-5.1); SODIUM 136 mmol/L (136-145)
[2019-12-09 11:03] LABS: ALBUMIN 3.6 g/dL (3.4-5.0); SGOT 34 U/L (15-37); SGPT 109 U/L (30-65); TOTAL BILIRUBIN 0.3 mg/dL (<0.1-1.0); TOTAL PROTEIN 7.1 g/dL (6.4-8.2); TROPONIN-I <0.06 ng/mL (<0.06)
[2019-12-09 11:19] LABS: DIRECT BILIRUBIN < 0.1 mg/dL (<0.1-0.2)
[2019-12-09 12:47] LABS: ABSOLUTE NEUTROPHILS 3.4 thou/uL (1.4-8.2)
--- NOTE | 2019-12-09 14:09 | EKG ---
[facility] [place] [address] ELECTROCARDIOGRAM REPORT Name: MARIE YIP Room #: 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 : 1930 Requested By: Tomasa Ward Order Number: [id number] MD: Adam Almanza Measurements Intervals [place] Rate: 59 P: 67 MA: 226 QRS: -19 QRSD: 94 T: 73 QT: 434 QTc: 430 Interpretive Statements Sinus rhythm Prolonged MA interval Borderline left axis deviation Compared to ECG 12/05/2019 03:32:20 First degree AV block now present T-wave abnormality no longer present Electronically Signed On 12-09-2019 14:07:45 CDT by Adam Almanza [email or web address] <ELECTRONICALLY SIGNED> By: Adam Almanza MD 12/09/19 1407 1015 1015 Adam Almanza MD /EPI
[2019-12-09 14:15] VITALS: BP 140/65
[2019-12-09 15:36] VITALS: BP 135/60
[2019-12-09 16:22] VITALS: BP 143/66
--- NOTE | 2019-12-09 18:46 | NUR ---
A/O, calm and pleasant; complained of pressure discomfort in left upper abdomen, Dr. Paz was reported to; no n/v; Patient is on diet of heart healthy, tolerated food well. will be NPO after midnight. Dr. Paz voiced that she would talk to the daughter of the patient. According to the daughter, patient has shoulder problem on the left side, Dr. Paz was reported to about it.
[2019-12-09 19:30] LABS: TROPONIN-I <0.06 ng/mL (<0.06)
[2019-12-09 19:44] LABS: LIPASE 231 U/L (73-393)
--- NOTE | 2019-12-09 19:50 | NUR ---
PT HAS BEEN PRESENTING ON THE MONIOR INCREASING PVC'S AND NONSUSTAINING VTACH AT THE BEGINNING OF THE SHIFT. THERE ARE NO PRIOR MG LAB RESULTS AND PRIOR POTASSIUM RESULT IS NORMAL. COM WRITER CUSTOMER SUPPORT PROFESSIONAL CONSULTED AND AWARE, MG/K STAT ORDERED. MACHINE PECAN PICKER CUSTOMER SUPPORT PROFESSIONAL CONTACTED REGARDING THIS MATTER AND IS AWAITING CALL BACK AT THIS TIME. WILL CONTINUE TO MONITOR.
[2019-12-09 20:05] VITALS: BP 155/68
[2019-12-09 20:09] LABS: POTASSIUM 3.9 mmol/L (3.5-5.1)
[2019-12-09 21:00] VITALS: BP 143/69
[2019-12-10 01:39] VITALS: BP 139/58
[2019-12-10 03:20] VITALS: BP 143/66
--- NOTE | 2019-12-10 07:59 | EKG ---
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 : 1930 Requested By: Melina Quintero Order Number: [id number] MD: Beka Husain Measurements Intervals [place] Rate: 61 P: 46 CT: 224 QRS: -23 QRSD: 90 T: 80 QT: 432 QTc: 435 Interpretive Statements Sinus rhythm Prolonged CT interval Borderline left axis deviation Nonspecific T abnormalities, lateral leads Compared to ECG 12/09/2019 10:15:33 T-wave abnormality now present Electronically Signed On 12-10-2019 7:58:06 CDT by Beka Husain [email or web address] <ELECTRONICALLY SIGNED> By: Beka Husain MD, [facility] 12/10/19 0758 1416 1416 Beka Husain MD, [facility] /EPI
[2019-12-10 08:00] VITALS: BP 118/78
[2019-12-10 08:12] VITALS: BP 120/94
--- NOTE | 2019-12-10 08:34 | NUR ---
ASSESSMENT: CM REVIEWED CHART AND SPOKE WITH ATTENDING. PT IS VERY HARD OF HEARING SO CM CONTACTED PATIENTS DAUGHTER HELEN. PT LIVES IN A HOUSE BY HIMSELF. HELEN HIS DAUGHTER REPORTS THERE A TWO STEPS TO ENTER THE HOME THROUGH THE GARAGE AND HE DOES NOT HAVE TO USE STEPS ONCE INSIDE. SHE REPORTS HE HAS STEPS TO THE BASEMENT FOR LAUNDRY BUT HE DOES NOT DO HIS LAUNDRY AND ONE OF THEM GOES TO THE HOME TO DO IT FOR HIM WELL ANY COOKING/CLEANING THAT NEEDS TO BE DONE. PT AMBULATES INDEPENDENTLY. SHE REPORTS PT HAS A GRAB BAR AND SHOWER CHAIR BUT DOES NOT USE IT. PT HAS NOT HAD A POST ACUTE CARE STAY IN THE PAST AND SHE DOES NOT BELIEVE HAS HAS EVER HAD HH. SHE STATES HE IS NORMALLY VERY INDEPENDENT. PT WAS ADMITTED FOR CP. PT IS BEING RULED OUT FOR COVID BEFORE ANY FURTHER INTERVENTIONS. CM WILL CONTINUE TO FOLLOW TO ASSIST NEEDED.
[2019-12-10 16:58] VITALS: BP 120/94
--- NOTE | 2019-12-10 18:18 | NUR ---
PATIENT DISCHARGED HOME AT THIS TIME. RESPIRATIONS ARE EVEN NON LABORED. PLEASANT WITH CARES. PATIENT WAS QUITE HAPPY TO BE GOING HOME THIS PM. SON PICKED HIM AT THE ER ENTRANCE.
== END 2019-12-10 18:28 | disposition home or self-care (01) | DRG 206 ==
LOC: ER 10:02 → 3W 15:37 → ER 15:37 → EROBS 15:42 → 3W 15:42
PROVIDERS: Emergency Medicine; Nurse Practitioner Family; ADMIT Hospitalist
DX: M94.0 Chondrocostal junction syndrome [Tietze] (principal); N17.9 Acute kidney failure, unspecified; N18.2 Chronic kidney disease, stage 2 (mild); I48.0 Paroxysmal atrial fibrillation; E78.00 Pure hypercholesterolemia, unspecified; F41.9 Anxiety disorder, unspecified; Z60.2 Problems related to living alone; I25.10 Atherosclerotic heart disease of native coronary artery without angina pectoris; K57.90 Diverticulosis of intestine, part unspecified, without perforation or abscess without bleeding; I12.9 Hypertensive chronic kidney disease with stage 1 through stage 4 chronic kidney disease, or unspecified chronic kidney disease; F32.9 Major depressive disorder, single episode, unspecified; Z87.891 Personal history of nicotine dependence; Z85.46 Personal history of malignant neoplasm of prostate; Z95.5 Presence of coronary angioplasty implant and graft; Z92.3 Personal history of irradiation; Z09 Encounter for follow-up examination after completed treatment for conditions other than malignant neoplasm; Z90.49 Acquired absence of other specified parts of digestive tract; Z98.42 Cataract extraction status, left eye; Z98.41 Cataract extraction status, right eye; Z79.82 Long term (current) use of aspirin; Z79.899 Other long term (current) drug therapy; Z82.49 Family history of ischemic heart disease and other diseases of the circulatory system; Z03.818 Encounter for observation for suspected exposure to other biological agents ruled out
CPT/HCPCS: 10879

== ENCOUNTER → 2019-12-24 | Outpatient (CLI) | payer OTHER | LOC: SJCVCIMAG 13:40 | DX: I10 Essential (primary) hypertension (principal); E78.5 Hyperlipidemia, unspecified; I48.91 Unspecified atrial fibrillation; I25.10 Atherosclerotic heart disease of native coronary artery without angina pectoris; Z79.82 Long term (current) use of aspirin; Z79.899 Other long term (current) drug therapy ==

== ENCOUNTER → 2020-06-25 | Outpatient (CLI) | payer OTHER | LOC: SJCVC 13:02 | PROVIDERS: ATTEND Internal Medicine Cardiovascular Disease | DX: R94.31 Abnormal electrocardiogram [ECG] [EKG] (principal); I25.10 Atherosclerotic heart disease of native coronary artery without angina pectoris; I10 Essential (primary) hypertension; E78.5 Hyperlipidemia, unspecified; I34.0 Nonrheumatic mitral (valve) insufficiency; I48.0 Paroxysmal atrial fibrillation; Z79.899 Other long term (current) drug therapy; Z87.891 Personal history of nicotine dependence ==